=== PATIENT | female | born 1960 | race Two or more races ===

== ENCOUNTER → 2018-09-13 | Outpatient (CLI) | payer OTHER ==
[2018-09-13 14:31] LABS: ABSOLUTE EOSINOPHILS # (AUTO) 0.1 10^3/uL (0.0-0.6); ABSOLUTE LYMPHOCYTES (AUTO) 3.1 10^3/uL (0.5-4.7); ABSOLUTE MONOCYTES (AUTO) 0.4 10^3/uL (0.1-1.4); ABSOLUTE NEUT (AUTO) 5.3 10^3/uL (1.7-8.2); BASOPHILS % (AUTO) 0.3 % (0-2); EOSINOPHILS % (AUTO) 1.1 % (0-6); HEMATOCRIT 40.9 % (36.0-47.0); LYMPHOCYTES % (AUTO) 34.8 % (13-45); MEAN CORPUSCULAR HGB CONC 34.1 g/dL (32.0-36.0); MEAN CORPUSCULAR VOLUME 85 fl (80-97); MONOCYTES % (AUTO) 4.5 % (3-13); PLATELET COUNT 231 10^3/uL (150-450); RED BLOOD COUNT 4.82 10^6/uL (3.72-5.28); RED CELL DISTRIBUTION WIDTH 14.1 % (11.5-14.0); SEGMENTED NEUTROPHILS % (AUTO) 59.3 % (42-78); TOTAL CELLS COUNTED % (AUTO) 100 %
[2018-09-13 14:55] LABS: ALANINE AMINOTRANSFERASE 24 U/L (9-52); ALBUMIN 3.8 g/dL (3.5-5.0); ALKALINE PHOSPHATASE 97 U/L (38-126); ANION GAP 7 (5-19); ASPARTATE AMINO TRANSFERASE 15 U/L (14-36); BILIRUBIN,DIRECT 0.3 mg/dL (0.0-0.4); BILIRUBIN,TOTAL 0.4 mg/dL (0.2-1.3); BLOOD UREA NITROGEN 11 mg/dL (7-20); CALCIUM 9.3 mg/dL (8.4-10.2); CARBON DIOXIDE 29 mmol/L (22-30); CHLORIDE 105 mmol/L (98-107); CHOLESTEROL 212.86 mg/dL (0-200); GLUCOSE 154 mg/dL (75-110); SODIUM 140.6 mmol/L (137-145); TOTAL PROTEIN 7.3 g/dL (6.3-8.2); TRIGLYCERIDES 162 mg/dL (<150)
[2018-09-13 15:06] LABS: DIRECT LDL 152 mg/dL (<100)
[2018-09-13 15:07] LABS: VLDL CHOLESTEROL 32.4 mg/dL (10-31)
== END ==
LOC: OD 13:24
DX: E11.9 Type 2 diabetes mellitus without complications (principal); I10 Essential (primary) hypertension; J45.901 Unspecified asthma with (acute) exacerbation
CPT/HCPCS: 36415; 80053; 80061; 83036; 84443; 85025

== ENCOUNTER → 2018-09-20 | Outpatient (CLI) | payer OTHER ==
--- NOTE | 2018-09-20 16:26 | RADIOLOGY REPORT (SQ) ---
EXAM DESCRIPTION: CHEST PA/LATERAL COMPLETED DATE/TIME: 09/20/2018 3:30 pm REASON FOR STUDY: SHORTNESS OF BREATH COMPARISON: None. EXAM PARAMETERS: NUMBER OF VIEWS: two views TECHNIQUE: Digital Frontal and Lateral radiographic views of the chest acquired. RADIATION DOSE: NA LIMITATIONS: none FINDINGS: LUNGS AND PLEURA: Nodular density overlying right lower lobe not identified on lateral vie w. No effusions. MEDIASTINUM AND HILAR STRUCTURES: No masses or contour abnormalities. HEART AND VASCULAR STRUCTURES: Heart normal size. No evidence for failure. BONES: No acute findings. HARDWARE: None in the chest. OTHER: No other significant finding. IMPRESSION: Possible nodule right lung. Recommend follow-up shallow oblique views with nipple marke rs or noncontrast chest CT. TECHNICAL DOCUMENTATION: JOB ID: [id number] [employer]- All Rights Reserved Reading location - IP/workstation name: [email or web address]
== END ==
LOC: OD 15:15
DX: R05 Cough (principal); R06.02 Shortness of breath; E11.8 Type 2 diabetes mellitus with unspecified complications
CPT/HCPCS: 71046

== ENCOUNTER → 2018-09-23 | Outpatient (CLI) | payer OTHER ==
--- NOTE | 2018-09-23 14:00 | RADIOLOGY REPORT (SQ) ---
EXAM DESCRIPTION: CHEST 2 VIEWS W/OBLIQUES COMPLETED DATE/TIME: 09/23/2018 1:23 pm REASON FOR STUDY: OTHER NONSPECIFIC ABNORMAL FINDING OF LUNG FIELD R91.8 OTHER NONSPECIFIC ABNORMAL FINDING OF LUNG FIELD COMPARISON: 09/20/2018 NUMBER OF VIEWS: Two views TECHNIQUE: PA and lateral images were obtained with nipple markers. LIMITATIONS: None. FINDINGS: LUNGS AND PLEURA: No opacities, masses or pneumothorax. No pleural effusion. MEDIASTINUM AND HILAR STRUCTURES: No masses. Contour normal. HEART AND VASCULAR STRUCTURES: Heart normal in size. Normal vasculature. BONES: No acute findings. HARDWARE: None in the chest. OTHER: No other significant finding. IMPRESSION: NO SIGNIFICANT RADIOGRAPHIC FINDING IN THE CHEST. TECHNICAL DOCUMENTATION: JOB ID: [id number] [employer]- All Rights Reserved Reading location - IP/workstation name: [email or web address]
== END ==
LOC: CCC 12:54
DX: R91.8 Other nonspecific abnormal finding of lung field (principal)

== ENCOUNTER 2018-09-25 14:25 | Observation (INO) | payer OTHER ==
--- NOTE | 2018-09-25 14:50 | ER Document Report ---
ED Medical Screen (RME) - General Chief Complaint: Chest Pain Stated Complaint: EYE PAIN Time Seen by Provider: 09/25/18 14:44 Primary Care Provider: [facility] [Primary Care Provider] - Follow up as needed Mode of Arrival: Ambulatory Information source: Patient Notes: Patient is a 58-year-old female who presents to the emergency department with multiple complaints. Complaint #1 is redness and swelling to her right eye with photophobia. Her daughter is at bedside translating for her, states that she has had recurrent infections in this eye, last saw a doctor in July for this. Complete #2 is midsternal chest pain that radiates to her left shoulder. She states this pain started yesterday and has associated nausea without vomiting or shortness of breath. Patient is Turkish-speaking, will need [employer] translation system for further evaluation. Exam: Erythema and swelling noted to right eye. Lung sounds clear and equal bilaterally. Nonreproducible chest pain to the middle and left chest wall. I have greeted and performed a rapid initial assessment of this patient. A comprehensive ED assessment and evaluation of the patient, analysis of test results and completion of the medical decision making process will be conducted by additional ED providers. Dictation of this chart was performed using voice recognition software; therefore, there may be some unintended grammatical errors. TRAVEL OUTSIDE OF THE [place] IN LAST 30 DAYS: No - Related Data Allergies/Adverse Reactions: No Known Allergies Allergy (Verified 09/25/18 14:29) Past Medical History - Social History Chew tobacco use (# tins/day): No Frequency of alcohol use: None - Past Medical History Cardiac Medical History: Reports: Hx Hypertension Pulmonary Medical History: Reports: Hx Asthma Endocrine Medical History: Reports: Hx Diabetes Mellitus Type 2 Renal/ Medical History: Denies: Hx Peritoneal Dialysis Musculoskeltal Medical History: Reports Hx Arthritis Past Surgical History: Reports: Hx Tubal Ligation Physical Exam - Vital signs Vitals: Temp Pulse Resp BP Pulse Ox 98.4 F 94 18 176/81 H 98 09/25/18 14:39 09/25/18 14:39 09/25/18 14:39 09/25/18 14:39 09/25/18 14:39 Course - Vital Signs Vital signs: Temp Pulse Resp BP Pulse Ox 98.4 F 94 18 176/81 H 98 09/25/18 14:39 09/25/18 14:39 09/25/18 14:39 09/25/18 14:39 09/25/18 14:39 Doctor's Discharge - Discharge Referrals: [facility] [Primary [facility]] - Follow up as needed
[2018-09-25 15:16] LABS: ABSOLUTE BASOPHILS # (AUTO) 0.1 10^3/uL (0.0-0.2); ABSOLUTE EOSINOPHILS # (AUTO) 0.1 10^3/uL (0.0-0.6); ABSOLUTE LYMPHOCYTES (AUTO) 3.1 10^3/uL (0.5-4.7); ABSOLUTE MONOCYTES (AUTO) 0.5 10^3/uL (0.1-1.4); BASOPHILS % (AUTO) 0.5 % (0-2); EOSINOPHILS % (AUTO) 1.1 % (0-6); HEMOGLOBIN 14.9 g/dL (12.0-15.5); LYMPHOCYTES % (AUTO) 28.9 % (13-45); MEAN CORPUSCULAR HEMOGLOBIN 29.2 pg (27.0-33.4); MEAN CORPUSCULAR HGB CONC 34.6 g/dL (32.0-36.0); MEAN CORPUSCULAR VOLUME 85 fl (80-97); MONOCYTES % (AUTO) 4.2 % (3-13); PLATELET COUNT 284 10^3/uL (150-450); RED BLOOD COUNT 5.09 10^6/uL (3.72-5.28); RED CELL DISTRIBUTION WIDTH 14.4 % (11.5-14.0); SEGMENTED NEUTROPHILS % (AUTO) 65.3 % (42-78); TOTAL CELLS COUNTED % (AUTO) 100 %; WHITE BLOOD COUNT 10.8 10^3/uL (4.0-10.5)
[2018-09-25 15:26] LABS: ALANINE AMINOTRANSFERASE 24 U/L (9-52); ALBUMIN 4.1 g/dL (3.5-5.0); ALKALINE PHOSPHATASE 91 U/L (38-126); ANION GAP 10 (5-19); ASPARTATE AMINO TRANSFERASE 16 U/L (14-36); BILIRUBIN,DIRECT 0.3 mg/dL (0.0-0.4); BILIRUBIN,TOTAL 0.5 mg/dL (0.2-1.3); BLOOD UREA NITROGEN 13 mg/dL (7-20); CALCIUM 9.6 mg/dL (8.4-10.2); CARBON DIOXIDE 28 mmol/L (22-30); CHLORIDE 104 mmol/L (98-107); GLUCOSE 149 mg/dL (75-110); POTASSIUM 4.2 mmol/L (3.6-5.0); SODIUM 141.8 mmol/L (137-145); TOTAL PROTEIN 7.5 g/dL (6.3-8.2)
[2018-09-25] MEDS ORDERED: TETRACAINE HCL 0.5% OPH SOLN 4 ML ONE (15:58)
--- NOTE | 2018-09-25 16:18 | RADIOLOGY REPORT (SQ) ---
EXAM DESCRIPTION: CHEST SINGLE VIEW COMPLETED DATE/TIME: 09/25/2018 3:14 pm REASON FOR STUDY: chest pain COMPARISON: 09/23/2018. NUMBER OF VIEWS: One view. TECHNIQUE: Single frontal radiographic view of the chest acquired. LIMITATIONS: None. FINDINGS: LUNGS AND PLEURA: No opacities, masses or pneumothorax. No pleural effusion. MEDIASTINUM AND HILAR STRUCTURES: No masses. Contour normal. HEART AND VASCULAR STRUCTURES: Heart normal in size. Normal vasculature. BONES: No acute findings. HARDWARE: None in the chest. OTHER: No other significant finding. IMPRESSION: NO SIGNIFICANT RADIOGRAPHIC FINDING IN THE CHEST. TECHNICAL DOCUMENTATION: JOB ID: [id number] [employer]- All Rights Reserved Reading location - IP/workstation name: [email or web address]
[2018-09-25] MEDS ORDERED: KETOROLAC TROMETHAMINE INJ/PF 30 MG/1 ML SDV IV ONE (16:38)
[2018-09-25] MEDS ORDERED: LIDOCAINE 2% VISCOUS SOLN 20 ML UDCUP PO ONE (16:38)
[2018-09-25] MEDS ORDERED: METOCLOPRAMIDE HCL ORAL SOLN 10 MG/10 ML UDCUP PO ONE (16:38)
[2018-09-25] MEDS ORDERED: MAG HYDROX/AL HYDROX/SIMETH SUSP 30 ML UDCUP PO ONE (16:38)
[2018-09-25] MEDS ORDERED: FAMOTIDINE 20 MG TABLET PO ONE (16:39)
[2018-09-25] MEDS ORDERED: AMPICILLIN SOD/SULBACTAM 3 GM VIAL IV ONE (16:39)
--- NOTE | 2018-09-25 17:14 | ER Document Report ---
ED General - General Chief Complaint: Chest Pain Stated Complaint: EYE PAIN Time Seen by Provider: 09/25/18 14:44 Mode of Arrival: Ambulatory Notes: This is a 58-year-old Chinese-speaking only [place] to the emergency department for evaluation of multiple symptoms. Patient complaining of pain and discharge with blurred vision in the right eye as well as a headache, as well as chest pain, as well as fever, as well as generalized body aches. Patient does not have a primary care doctor. Saw approximately 1 year ago in [place]. Patient has a history of diabetes as well as hypertension. 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 States that she has never seen an personnel security specialist for this that her regular doctor in [place] would just give her some antibiotics. The abscess has been there for several years but never goes away. TRAVEL OUTSIDE OF THE [place] IN LAST 30 DAYS: No - HPI Onset/Duration: Gradual, Constant Quality of pain: Achy Severity: Moderate Pain Level: 3 Associated symptoms: Chest pain, Fever, Other - Eye pain on the right, eye discharge on the right eye - Related Data Allergies/Adverse Reactions: No Known Allergies Allergy (Verified 09/25/18 14:29) Past Medical History - General Information source: Patient - Social History Smoking Status: Current Every Day Smoker Chew tobacco use (# tins/day): No Frequency of alcohol use: None Lives with: Family Family History: Reviewed & Not Pertinent Patient has suicidal ideation: No Patient has homicidal ideation: No - Past Medical History Cardiac Medical History: Reports: Hx Hypertension Pulmonary Medical History: Reports: Hx Asthma Endocrine Medical History: Reports: Hx Diabetes Mellitus Type 2 Renal/ Medical History: Denies: Hx Peritoneal Dialysis Musculoskeletal Medical History: Reports Hx Arthritis Past Surgical History: Reports: Hx Tubal Ligation Review of Systems - Review of Systems Notes: Constitutional: denies: Chills, Diaphoresis, Malaise, Weakness.+Fever, EENT: denies: Double vision, Nose congestion, Nose discharge, Throat swelling, Mouth pain. +RIGHT Eye discharge, Blurred vision, Tearing, Cardiovascular: denies: Palpitations, Heart racing, Orthopnea, Dyspnea, +Chest pain Respiratory: denies: Cough, Hurts to breathe, Wheezing, Shortness of breath Gastrointestinal: denies: Abdominal pain, Diarrhea, Nausea, Vomiting, Black stools, bright red blood in stool Genitourinary: denies: Burning, Dysuria, Discharge, Frequency, Flank pain, Hematuria Musculoskeletal: denies: Joint pain, Joint swelling, Muscle pain, Muscle stiffness, back pain Hematologic/Lymphatic: denies: Anemia, Easy bleeding, Easy bruising, Blood clots Neurological/Psychological: denies: Confusion, Dementia, Depression, Loss of consciousness Skin: No lesions, no masses, no skin breakdown, no abscesses Physical Exam - Vital signs Vitals: Temp Pulse Resp BP Pulse Ox 98.4 F 94 18 176/81 H 98 09/25/18 14:39 09/25/18 14:39 09/25/18 14:39 09/25/18 14:39 09/25/18 14:39 Interpretation: Hypertensive - General General appearance: Appears well, Alert - HEENT Head: Normocephalic, Atraumatic Pupils: PERRL Notes: The left eye is normal. The right eye demonstrates a 1 cm round palpable and painful upper eyelid abscess versus stye. There is a large amount of conjunctival injection in the right eye. There is a large amount of discharge of the right eye. There is some moderate swelling to the right eye. The right eye does not demonstrate any fluroscein uptake. The tonometry performed has an average pressure of 16. - Respiratory Respiratory status: No respiratory distress Chest status: Nontender Breath sounds: Normal Chest palpation: Normal - Cardiovascular Rhythm: Regular Heart sounds: Normal auscultation Murmur: No - Abdominal Inspection: Normal Distension: No distension Bowel sounds: Normal Tenderness: Nontender Organomegaly: No organomegaly - Back Back: Normal, Nontender - Extremities General upper extremity: Normal inspection, Nontender, Normal color, Normal ROM, Normal temperature General lower extremity: Normal inspection, Nontender, Normal color, Normal ROM, Normal temperature, Normal weight bearing. No: Kayode's sign - Neurological Neuro grossly intact: Yes Cognition: Normal Orientation: AAOx4 [place] Coma Scale Eye Opening: Spontaneous Shira Coma Scale Verbal: Oriented [place] Coma Scale Motor: Obeys Commands [place] Coma Scale Total: 15 Speech: Normal Motor strength normal: LUE, RUE, LLE, RLE Sensory: Normal - Psychological Associated symptoms: Normal affect, Normal mood - Skin Skin Temperature: Warm Skin Moisture: Dry Skin Color: Normal Course - Re-evaluation Re-evalutation: 09/25/18 17:14 Microbiology 09/25/18 16:12 Wound Culture - Preliminary Eyelid - Right Laboratory 09/25/18 09/25/18 09/25/18 15:00 15:00 15:00 WBC 10.8 H RBC 5.09 Hgb 14.9 Hct 43.0 MCV 85 MCH 29.2 MCHC 34.6 RDW 14.4 H Plt Count 284 Seg Neutrophils % 65.3 Lymphocytes % 28.9 Monocytes % 4.2 Eosinophils % 1.1 Basophils % 0.5 Absolute Neutrophils 7.0 Absolute Lymphocytes 3.1 Absolute Monocytes 0.5 Absolute Eosinophils 0.1 Absolute Basophils 0.1 Sodium 141.8 Potassium 4.2 Chloride 104 Carbon Dioxide 28 Anion Gap 10 BUN 13 Creatinine 0.55 Est GFR ( Amer) > 60 Est GFR (Non-Af Amer) > 60 Glucose 149 H Calcium 9.6 Total Bilirubin 0.5 Direct Bilirubin 0.3 Neonat Total Bilirubin Not Reportable Neonat Direct Bilirubin Not Reportable Neonat Indirect Bili Not Reportable AST 16 ALT 24 Alkaline Phosphatase 91 Troponin I < 0.012 Total Protein 7.5 Albumin 4.1 09/25/18 17:54 At this time patient is a high risk chest pain patient with chest pain that is exertional, she is hypertensive, diabetic and no consistent outpatient primary care. She has an infection in her right eye that she describes as a chronic infection. I am treating that with antibiotics. At this time patient needs to be admitted. I will consult with hospitalist for admission at this time. 09/25/18 18:15 Chest X-Ray 09/25/18 14:48 IMPRESSION: NO SIGNIFICANT RADIOGRAPHIC FINDING IN THE CHEST. Orbit CT 09/25/18 16:38 IMPRESSION: Small likely abscess in the right eye lid. No involvement of the globe. - Vital Signs Vital signs: Temp Pulse Resp BP Pulse Ox 98.4 F 94 20 151/74 H 96 09/25/18 14:39 09/25/18 14:39 09/25/18 17:01 09/25/18 17:01 09/25/18 17:01 - Laboratory Result Diagrams: 09/25/18 15:00 09/25/18 15:00 Laboratory results interpreted by me: 09/25/18 09/25/18 15:00 15:00 WBC 10.8 H RDW 14.4 H Glucose 149 H - EKG Interpretation by Me EKG shows normal: Sinus rhythm, Butternut, Intervals, QRS Complexes, ST-T Waves Discharge - Discharge Clinical Impression: Abscess of right eyelid Chest pain Qualifiers: Chest pain type: unspecified Qualified Code(s): R07.9 - Chest pain, unspecified Condition: Good Disposition: ADMITTED INPATIENT Admitting Provider: Mini (Hospitalist) Unit Admitted: Telemetry
[2018-09-25] MEDS ORDERED: TETRACAINE HCL 0.5% OPH SOLN 4 ML OU ONE (17:53)
[2018-09-25] MEDS ORDERED: ERYTHROMYCIN 0.5% OPH OINT 1 GM UNIT DOSE OD ONE (17:55)
--- NOTE | 2018-09-25 17:56 | RADIOLOGY REPORT (SQ) ---
EXAM DESCRIPTION: CT ORBIT/SELLA WITH COMPLETED DATE/TIME: 09/25/2018 5:45 pm REASON FOR STUDY: right eye swelling COMPARISON: None. TECHNIQUE: Post contrast images through the orbits windowed for bone and soft tissue. Additional co debi and sagittal reconstructed images reviewed. All images stored on PACS. All CT scanners at this facility use dose modulation, iterative reconstruction, and/or weight based d osing when appropriate to reduce radiation dose to as low as reasonably achievable (ALARA). [facility]: Dose Right [facility]: CareDose [facility]: Dose Right [facility]: Teradose 4D [facility]: Diaspora CONTRAST TYPE AND DOSE: contrast/concentration: Isovue 350.00 mg/ml; Total Contrast Delivered: 50.0 ml; Total Saline Delivered: 50.0 ml RENAL FUNCTION: GFR > 60. RADIATION DOSE: CT Rad equipment meets quality standard of care and radiation dose reduction techniq ues were employed. CTDIvol: 30.4 mGy. DLP: 355 mGy-cm. . LIMITATIONS: None. FINDINGS: FACIAL BONES: No fracture or bone lesion. ORBITS: No intraconal lesions. Muscles and nerve intact. The globe intact. On the right there is a 1 cm low-density mass lesion which appears to be in the right eyelid. Rim en hancement. PARANASAL SINUSES: Clear. No significant mucosal thickening, mass or fluid. SOFT TISSUES: No mass or edema. No abnormal enhancement. No CT evidence of acute sinusitis. INFERIOR BRAIN: Limited view. No acute findings. OTHER: No other significant finding. IMPRESSION: Small likely abscess in the right eye lid. No involvement of the globe. TECHNICAL DOCUMENTATION: JOB ID: [id number] Quality ID # [id number]: Final reports with documentation of one or more dose reduction techniques (e.g., Au tomated exposure control, adjustment of the mA and/or kV according to patient size, use of iterative reconstruction technique) 2010 [employer]- All Rights Reserved Reading location - IP/workstation name: [email or web address]
[2018-09-25] MEDS ORDERED: HYDRALAZINE HCL INJ/PF 20 MG/1 ML SDV IV PRN (19:18)
[2018-09-25] MEDS ORDERED: DEXTROSE 50%-WATER 25 GM/50 ML DISP.SYRIN IV PRN ×2 (19:18)
[2018-09-25] MEDS ORDERED: DEXTROSE 40% GEL 15 GM TUBE PO PRN ×2 (19:18)
[2018-09-25] MEDS ORDERED: GLUCAGON,HUMAN RECOMB 1 MG INJ IM PRN (19:18)
[2018-09-25] MEDS ORDERED: AMPICILLIN SOD/SULBACTAM 3 GM VIAL IV PRN (19:30)
--- NOTE | 2018-09-25 20:24 | RADIOLOGY REPORT (SQ) ---
EXAM DESCRIPTION: RadLex: CT CHEST WITHOUT IV CONTRAST CLINICAL HISTORY: 58 years Female; radiating CP to midback TECHNIQUE: CT of the chest without contrast All CT scans at this facility use dose modulation, iterative reconstruction, and/or weight based dosing when appropriate to reduce radiation dose to as low as reasonably achievable. COMPARISON: None. FINDINGS: Chest: Lungs: Lungs are clear. No pneumothorax or pleural effusion. 3 mm calcified granuloma in the lateral right lower lobe. Mediastinum:No mediastinal mass or adenopathy. Aorta: Minimal calcific plaque. No aneurysm. Bones:No acute bone findings. Contrast material is noted in the renal collecting systems bilaterally IMPRESSION: 1. No acute findings.
[2018-09-25] MEDS: INSULIN LISPRO 100 UNIT/ML 3 ML VIAL SUBCUT SCH (21:18)
[2018-09-25] MEDS: CEFEPIME 1 GM/D5W RTU 1 GM/50 ML RTUPB IV SCH (21:21)
[2018-09-25] MEDS ORDERED: NITROGLYCERIN 0.4 MG/TAB 25 TAB/BOTTLE SL PRN (21:35)
[2018-09-25] MEDS ORDERED: POLYMYXIN B SULFATE/TMP OPH SOLN 10 ML ONE (21:59)
[2018-09-25] MEDS: POLYMYXIN B SULFATE/TMP OPH SOLN (10 ML/ER DISP) OD SCH (22:46)
[2018-09-26] MEDS ORDERED: AMPICILLIN SOD/SULBACTAM 3 GM VIAL ONE (00:32)
[2018-09-26] MEDS: AMPICILLIN SODIUM/SULBACTAM NA 3 GM in NORMAL SALINE 100 ML IV SCH ×5 (00:57→23:27)
--- NOTE | 2018-09-26 07:32 | PDOC H&P ---
History of Present Illness Admission Date/PCP: 09/25/18 18:16 [facility] History of Present Illness: JASPREET TIM is a 58 year old female with a PMH of IDDM, HTN, smoker and asthma who moved here from [place] last year. She is presenting with chest pain and acute right eye redness. Conversation was done with an official nurse surveyor helper in the ER. She developed sharp,tightness sensation on her midsternal area radiating to the interscapular area while cooking yesterday relieved by rest, 8/10 in intensity. Denies SOB. She also has recurrence of right eye redness with some purulent drainage and a small mass on the right eyelid. She has been having this same problem over the past 6-7 years and claims she it usually resolves with the eye drops she was prescribed in [place]. Tonometry was done by ER provider and it was normal. She is able to read letters from 2 meters but says it is not as sharp as compared to the left eye. The conjunctiva is very hyperemic with some purulent discharge. She has what looks like a hordeolum on the right eyelid. Orbital CT was done which showed a possible small right eyelid abscess. I did discuss case with [facility] as there is no optha service in house. Dr. Andersen recommends IV antibiotics and opthalmic Polytrim along with warm compress on the area and to keep patient upright the whole time. No need for emergent drainage at this time unless there is rapid growth of mass or no response to antibiotics in the next 1-2 days. Past Medical History Cardiac Medical History: Reports: Hypertension Pulmonary Medical History: Reports: Asthma Endocrine Medical History: Reports: Diabetes Mellitus Type 2 Musculoskeltal Medical History: Reports: Arthritis Past Surgical History Past Surgical History: Reports: Tubal Ligation Social History Lives with: Family Smoking Status: Current Every Day Smoker Family History Family History: Reviewed & Not Pertinent Parental Family History Reviewed: Yes - no premature CAD Children Family History Reviewed: No Sibling(s) Family History Reviewed.: No Medication/Allergy Home Medications: Metformin HCl 2 tab PO DAILY 09/25/18 Allergies/Adverse Reactions: clopidogrel [From Plavix] Allergy (Verified 09/25/18 20:22) Review of Systems All systems: reviewed and no additional remarkable complaints except as stated - as mentioned in HPI Physical Exam Vital Signs: Temp Pulse Resp BP Pulse Ox 98.4 F 94 20 151/74 H 96 09/25/18 14:39 09/25/18 14:39 09/25/18 17:01 09/25/18 17:01 09/25/18 17:01 Intake & Output 09/24/18 09/25/18 09/26/18 06:59 06:59 06:59 Weight 134 lb 11.239 oz General appearance: PRESENT: no acute distress, well-developed, well-nourished Head exam: PRESENT: atraumatic, normocephalic Eye exam: PRESENT: other - Tonometry was done by ER provider and it was normal. She is able to read letters from 2 meters but says it is not as sharp as compared to the left eye. The conjunctiva is very hyperemic with some purulent discharge. She has what looks like a hordeolum on the right eyelid. Neck exam: ABSENT: carotid bruit, JVD, lymphadenopathy, thyromegaly Respiratory exam: PRESENT: clear to auscultation micah. ABSENT: rales, rhonchi, wheezes Cardiovascular exam: PRESENT: RRR. ABSENT: diastolic murmur, rubs, systolic murmur Pulses: PRESENT: normal dorsalis pedis pul Rectal exam: PRESENT: deferred Neurological exam: PRESENT: alert, awake, oriented to person, oriented to place, oriented to time, oriented to situation, CN II-XII grossly intact. ABSENT: motor sensory deficit Results Laboratory Results: 09/25/18 15:00 09/25/18 15:00 09/25/18 09/25/18 15:00 15:00 WBC 10.8 H RBC 5.09 Hgb 14.9 Hct 43.0 MCV 85 MCH 29.2 MCHC 34.6 RDW 14.4 H Plt Count 284 Seg Neutrophils % 65.3 Lymphocytes % 28.9 Monocytes % 4.2 Eosinophils % 1.1 Basophils % 0.5 Absolute Neutrophils 7.0 Absolute Lymphocytes 3.1 Absolute Monocytes 0.5 Absolute Eosinophils 0.1 Absolute Basophils 0.1 Sodium 141.8 Potassium 4.2 Chloride 104 Carbon Dioxide 28 Anion Gap 10 BUN 13 Creatinine 0.55 Est GFR ( Amer) > 60 Est GFR (Non-Af Amer) > 60 Glucose 149 H Calcium 9.6 Total Bilirubin 0.5 AST 16 ALT 24 Alkaline Phosphatase 91 Total Protein 7.5 Albumin 4.1 09/25/18 15:00 Troponin I < 0.012 Impressions: Chest X-Ray 09/25/18 14:48 IMPRESSION: NO SIGNIFICANT RADIOGRAPHIC FINDING IN THE CHEST. Orbit CT 09/25/18 16:38 IMPRESSION: Small likely abscess in the right eye lid. No involvement of the globe. Assessment and Plan - Diagnosis (1) Chest pain Qualifiers: Chest pain type: unspecified Qualified Code(s): R07.9 - Chest pain, unspecified Is this a current diagnosis for this admission?: Yes Plan: First EKG and troponin are negative. Will cycle cardiac enzymes and EKG. (2) Abscess of right eyelid Is this a current diagnosis for this admission?: Yes Plan: Possible small abscess on right eyelid. I did discuss case with [facility] as there is no optha service in house. Dr. Andersen recommends IV antibiotics and opthalmic Polytrim along with warm compress on the area and to keep patient upright the whole time. No need for emergent drainage at this time unless there is rapid growth of mass or no response to antibiotics in the next 1-2 days. (3) IDDM (insulin dependent diabetes mellitus) Is this a current diagnosis for this admission?: Yes Plan: She is on Lantus at home. Will verify home meds. Accuechks and sliding scale. Check A1c. (4) HTN (hypertension) Is this a current diagnosis for this admission?: Yes Plan: Resume amlodipine. - Time Time Spent with patient: 35 or more minutes
[2018-09-26] MEDS: FONDAPARINUX SODIUM INJ 2.5 MG/0.5 ML DISP.SYRIN SUBCUT SCH (08:26)
[2018-09-26] MEDS: INSULIN LISPRO 100 UNIT/ML 3 ML VIAL SUBCUT SCH ×4 (08:26→21:31)
[2018-09-26] MEDS: CEFEPIME 1 GM/D5W RTU 1 GM/50 ML RTUPB IV SCH ×2 (10:04→21:30)
[2018-09-26] MEDS: AMLODIPINE BESYLATE 10 MG TABLET PO SCH (10:04)
[2018-09-26] MEDS: POLYMYXIN B SULFATE/TMP OPH SOLN (10 ML/ER DISP) OD SCH ×3 (10:05→17:20)
[2018-09-26] MEDS: ACETAMINOPHEN 325 MG TABLET PO PRN ×2 (13:09→23:31)
--- NOTE | 2018-09-26 16:51 | PDOC PROGRESS REPORT ---
Subjective Progress Note for:: 09/26/18 Subjective:: No adverse events overnight. No new complaints. No visual changes. No fevers. Eating and drinking without difficulty. No chest pain or shortness of breath. Reason For Visit: CHEST PAIN, EYELID ABSCESS Physical Exam Vital Signs: Temp Pulse Resp BP Pulse Ox 97.9 F 60 15 130/68 H 97 09/26/18 15:31 09/26/18 15:31 09/26/18 15:31 09/26/18 15:31 09/26/18 15:31 Intake & Output 09/25/18 09/26/18 09/27/18 06:59 06:59 06:59 Intake Total 600 350 Balance 600 350 Weight 60.8 kg General appearance: PRESENT: no acute distress, cooperative, disheveled Eye exam: PRESENT: conjunctival injection - Right eye, EOMI, periorbital swelling - Right eye, PERRLA. ABSENT: nystagmus, scleral icterus Respiratory exam: PRESENT: clear to auscultation micah, symmetrical, unlabored. ABSENT: accessory muscle use, crackles, prolonged expiratory phas, rhonchi, tachypnea, wheezes Cardiovascular exam: PRESENT: RRR, +S1, +S2 Pulses: PRESENT: normal carotid pulses Vascular exam: PRESENT: normal capillary refill GI/Abdominal exam: PRESENT: normal bowel sounds, soft. ABSENT: distended, guarding, rebound, tenderness Extremities exam: ABSENT: clubbing, pedal edema Musculoskeletal exam: PRESENT: normal inspection. ABSENT: deformity Neurological exam: PRESENT: alert, awake, oriented to person, oriented to place, oriented to situation Psychiatric exam: PRESENT: anxious Skin exam: PRESENT: dry, warm Results Laboratory Results: 09/25/18 15:00 09/25/18 15:00 09/25/18 09/25/18 09/26/18 15:00 21:10 06:22 Troponin I < 0.012 < 0.012 < 0.012 Impressions: Chest CT 09/25/18 00:00 IMPRESSION: 1. No acute findings. Chest X-Ray 09/25/18 14:48 IMPRESSION: NO SIGNIFICANT RADIOGRAPHIC FINDING IN THE CHEST. Orbit CT 09/25/18 16:38 IMPRESSION: Small likely abscess in the right eye lid. No involvement of the globe. Assessment and Plan - Diagnosis (1) Abscess of right eyelid Is this a current diagnosis for this admission?: Yes Plan: Dr. Andersen, tire spotter in [place], recommends IV antibiotics and opthalmic Polytrim along with warm compress on the area and to keep patient upright the whole time. No need for emergent drainage at this time unless there is rapid growth of mass or no response to antibiotics in the next 1-2 days. Will monitor response and adjust accordingly. (2) Chest pain Qualifiers: Chest pain type: unspecified Qualified Code(s): R07.9 - Chest pain, unspecified Is this a current diagnosis for this admission?: Yes Plan: Troponins are negative x3. EKG is unremarkable. May consider stress test as an outpatient. (3) IDDM (insulin dependent diabetes mellitus) Is this a current diagnosis for this admission?: Yes Plan: She is on Lantus at home. Accuchecks and sliding scale. Check A1c. - Time Time Spent with patient: 15-24 minutes
--- NOTE | 2018-09-26 23:41 | EKG REPORT ---
SEVERITY:- NORMAL ECG - SINUS RHYTHM : Confirmed by: Shirley Leslie 26-Sep-2018 23:40:54
--- NOTE | 2018-09-26 23:41 | EKG REPORT ---
SEVERITY:- BORDERLINE ECG - SINUS RHYTHM BORDERLINE T WAVE ABNORMALITIES : Confirmed by: Shirley Leslie 26-Sep-2018 23:40:50
[2018-09-27] MEDS ORDERED: DIPHENHYDRAMINE HCL 50 MG CAPSULE PO ONE (00:30)
[2018-09-27] MEDS: AMPICILLIN SODIUM/SULBACTAM NA 3 GM in NORMAL SALINE 100 ML IV SCH ×4 (05:08→23:46)
[2018-09-27] MEDS: FONDAPARINUX SODIUM INJ 2.5 MG/0.5 ML DISP.SYRIN SUBCUT SCH (09:11)
[2018-09-27] MEDS: AMLODIPINE BESYLATE 10 MG TABLET PO SCH (09:32)
[2018-09-27] MEDS: INSULIN LISPRO 100 UNIT/ML 3 ML VIAL SUBCUT SCH ×4 (09:32→21:22)
[2018-09-27] MEDS: CEFEPIME 1 GM/D5W RTU 1 GM/50 ML RTUPB IV SCH ×2 (09:33→21:23)
[2018-09-27] MEDS: POLYMYXIN B SULFATE/TMP OPH SOLN (10 ML/ER DISP) OD SCH ×3 (09:36→18:36)
--- NOTE | 2018-09-27 16:32 | PDOC PROGRESS REPORT ---
Subjective Progress Note for:: 09/27/18 Subjective:: No adverse events overnight. No new complaints. No fevers. Her vision has not changed, and the vision in the right eye has been blurry for the last 17 years. She has had a problem with her eye for 17 years, and has had this cystic structure in her eyelid during that time and apparently has an infection crop up in the right eye once or twice a year, usually associated with seasonal allergies. She has not seen an sizer hand in years and the last time she saw 1 was in [place] many years ago when they told her at that time that they did not have the capabilities to do anything for her. Reason For Visit: CHEST PAIN, EYELID ABSCESS Physical Exam Vital Signs: Temp Pulse Resp BP Pulse Ox 98.7 F 68 18 175/76 H 98 09/27/18 11:53 09/27/18 14:00 09/27/18 11:53 09/27/18 11:53 09/27/18 11:53 Intake & Output 09/26/18 09/27/18 09/28/18 06:59 06:59 06:59 Intake Total 600 1303 150 Balance 600 1303 150 Weight 60.8 kg 61.2 kg General appearance: PRESENT: no acute distress, cooperative, disheveled Eye exam: PRESENT: conjunctival injection - Right eye, EOMI, periorbital swel ling - Right eye improved, PERRLA, nontender cystic structure in right eyelid. ABSENT: nystagmus, scleral icterus Respiratory exam: PRESENT: clear to auscultation micah, symmetrical, unlabored. ABSENT: accessory muscle use, crackles, prolonged expiratory phas, rhonchi, tachypnea, wheezes Cardiovascular exam: PRESENT: RRR, +S1, +S2 Pulses: PRESENT: normal carotid pulses Vascular exam: PRESENT: normal capillary refill GI/Abdominal exam: PRESENT: normal bowel sounds, soft. ABSENT: distended, guarding, rebound, tenderness Extremities exam: ABSENT: clubbing, pedal edema Musculoskeletal exam: PRESENT: normal inspection. ABSENT: deformity Neurological exam: PRESENT: alert, awake, oriented to person, oriented to place, oriented to situation Psychiatric exam: PRESENT: anxious Skin exam: PRESENT: dry, warm Results Laboratory Results: 09/25/18 15:00 09/25/18 15:00 09/25/18 16:12 Eyelid - Right Gram Stain - Final 09/25/18 09/25/18 09/26/18 15:00 21:10 06:22 Troponin I < 0.012 < 0.012 < 0.012 Impressions: Chest CT 09/25/18 00:00 IMPRESSION: 1. No acute findings. Chest X-Ray 09/25/18 14:48 IMPRESSION: NO SIGNIFICANT RADIOGRAPHIC FINDING IN THE CHEST. Orbit CT 09/25/18 16:38 IMPRESSION: Small likely abscess in the right eye lid. No involvement of the globe. Assessment and Plan - Diagnosis (1) Abscess of right eyelid Is this a current diagnosis for this admission?: Yes Plan: Dr. Andersen, sizer hand in [place], recommends IV antibiotics and opthalmic Polytrim along with warm compress on the area and to keep patient upright the whole time. No need for emergent drainage at this time unless there is rapid growth of mass or no response to antibiotics. Fortunately, she has had improvement in the erythema and the swelling around her eye, with the unchanged cystic structure in her right eyelid which is chronic. I think with another day of IV antibiotics, if she shows some continued improvement, she should be able to go home on oral antibiotics tomorrow. She would be willing to follow-up with an sizer hand and I have recommended that she do so, because this is an issue with an infection in her eye that seems to recur once or twice every year. (2) Chest pain Qualifiers: Chest pain type: unspecified Qualified Code(s): R07.9 - Chest pain, unspecified Is this a current diagnosis for this admission?: Yes Plan: Troponins are negative x3. EKG is unremarkable. May consider stress test as an outpatient. (3) IDDM (insulin dependent diabetes mellitus) Is this a current diagnosis for this admission?: Yes Plan: She is on Lantus at home. Accuchecks and sliding scale. - Time Time Spent with patient: 15-24 minutes
[2018-09-28] MEDS: AMPICILLIN SODIUM/SULBACTAM NA 3 GM in NORMAL SALINE 100 ML IV SCH ×4 (05:55→23:39)
[2018-09-28 07:47] LABS: ANION GAP 5 (5-19); BLOOD UREA NITROGEN 11 mg/dL (7-20); CALCIUM 9.2 mg/dL (8.4-10.2); CARBON DIOXIDE 24 mmol/L (22-30); CHLORIDE 110 mmol/L (98-107); GLUCOSE 222 mg/dL (75-110); POTASSIUM 4.1 mmol/L (3.6-5.0)
[2018-09-28] MEDS: CEFEPIME 1 GM/D5W RTU 1 GM/50 ML RTUPB IV SCH (09:20)
[2018-09-28] MEDS: INSULIN LISPRO 100 UNIT/ML 3 ML VIAL SUBCUT SCH ×4 (09:21→22:16)
[2018-09-28] MEDS: AMLODIPINE BESYLATE 10 MG TABLET PO SCH (09:21)
[2018-09-28] MEDS: FONDAPARINUX SODIUM INJ 2.5 MG/0.5 ML DISP.SYRIN SUBCUT SCH (09:21)
[2018-09-28] MEDS: POLYMYXIN B SULFATE/TMP OPH SOLN (10 ML/ER DISP) OD SCH ×3 (09:27→18:44)
[2018-09-28] MEDS: LOSARTAN POTASSIUM 50 MG TABLET PO SCH (14:07)
[2018-09-28] MEDS: DILTIAZEM HCL 120 MG CAP.SR.24H PO SCH (14:08)
--- NOTE | 2018-09-28 14:53 | PDOC PROGRESS REPORT ---
Subjective Progress Note for:: 09/28/18 Subjective:: 58 year old female with a PMH of IDDM, HTN, smoker and asthma who moved here from [place] last year. She is presenting with chest pain and acute right eye redness. Conversation was done with an official nurse senior marketing data analyst in the ER. She developed sharp,tightness sensation on her midsternal area radiating to the interscapular area while cooking yesterday relieved by rest, 8/10 in intensity. Denies SOB. She also has recurrence of right eye redness with some purulent drainage and a small mass on the right eyelid. She has been having this same problem over the past 6-7 years and claims she it usually resolves with the eye drops she was prescribed in [place]. Tonometry was done by ER provider and it was normal. She is able to read letters from 2 meters but says it is not as sharp as compared to the left eye. The conjunctiva is very hyperemic with some purulent discharge. She has what looks like a hordeolum on the right eyelid. Orbital CT was done which showed a possible small right eyelid abscess. I did discuss case with [facility] as there is no optha service in house. Dr. Andersen recommends IV antibiotics and opthalmic Polytrim along with warm compress on the area and to keep patient upright the whole time. No need for emergent drainage at this time unless there is rapid growth of mass or no response to antibiotics in the next 1-2 days. 09/27/2018=No adverse events overnight. No new complaints. No fevers. Her vision has not changed, and the vision in the right eye has been blurry for the last 17 years. She has had a problem with her eye for 17 years, and has had this cystic structure in her eyelid during that time and apparently has an infection crop up in the right eye once or twice a year, usually associated with seasonal allergies. She has not seen an pearl glue drier in years and the last time she saw 1 was in [place] many years ago when they told her at that time that they did not have the capabilities to do anything for her. 09/28/2018-no acute events in the last 24 hours. Patient is afebrile. Patient speaks very little Icelandic. Family is not at bedside. Patient is not changed. Patient has a problem with right eye vision for more than 17 years. Patient admitted for possible infection of the cystic structure on the right upper eyelid. Patient is receiving IV antibiotic therapy. Currently on Unasyn and cefepime. And is to continue the present management. Reason For Visit: CHEST PAIN, EYELID ABSCESS Physical Exam Vital Signs: Temp Pulse Resp BP Pulse Ox 98.3 F 58 L 18 141/63 H 95 09/28/18 10:56 09/28/18 10:56 09/28/18 10:56 09/28/18 10:56 09/28/18 10:56 Intake & Output 09/27/18 09/28/18 09/29/18 06:59 06:59 06:59 Intake Total 1303 1703 50 Balance 1303 1703 50 Weight 61.2 kg 64.9 kg General appearance: PRESENT: no acute distress Head exam: PRESENT: atraumatic Eye exam: PRESENT: PERRLA Mouth exam: PRESENT: moist, tongue midline Neck exam: ABSENT: carotid bruit, JVD, lymphadenopathy, thyromegaly Respiratory exam: PRESENT: decreased breath sounds Cardiovascular exam: PRESENT: RRR. ABSENT: diastolic murmur, rubs, systolic murmur Pulses: PRESENT: normal dorsalis pedis pul GI/Abdominal exam: PRESENT: normal bowel sounds, soft. ABSENT: distended, guarding, mass, organolmegaly, rebound, tenderness Extremities exam: PRESENT: full ROM. ABSENT: calf tenderness, clubbing, pedal edema Neurological exam: PRESENT: alert, awake, oriented to person, oriented to place, oriented to time, oriented to situation, CN II-XII grossly intact. ABSENT: motor sensory deficit Psychiatric exam: PRESENT: appropriate affect, normal mood. ABSENT: homicidal ideation, suicidal ideation Results Laboratory Results: 09/25/18 15:00 09/28/18 06:14 09/28/18 06:14 Sodium 139.0 Potassium 4.1 Chloride 110 H Carbon Dioxide 24 Anion Gap 5 BUN 11 Creatinine 0.50 L Est GFR ( Amer) > 60 Est GFR (Non-Af Amer) > 60 Glucose 222 H Calcium 9.2 09/25/18 16:12 Eyelid - Right Gram Stain - Final 09/25/18 16:12 Eyelid - Right Wound Culture - Final Enterococcus Faecalis(Group D) Skin [place] 09/25/18 09/25/18 09/26/18 15:00 21:10 06:22 Troponin I < 0.012 < 0.012 < 0.012 Impressions: Chest CT 09/25/18 00:00 IMPRESSION: 1. No acute findings. Chest X-Ray 09/25/18 14:48 IMPRESSION: NO SIGNIFICANT RADIOGRAPHIC FINDING IN THE CHEST. Orbit CT 09/25/18 16:38 IMPRESSION: Small likely abscess in the right eye lid. No involvement of the globe. Assessment and Plan - Diagnosis (1) Abscess of right eyelid Is this a current diagnosis for this admission?: Yes Plan: Dr. Andersen, pearl glue drier in [place], recommends IV antibiotics and opthalmic Polytrim along with warm compress on the area and to keep patient upright the whole time. No need for emergent drainage at this time unless there is rapid growth of mass or no response to antibiotics. Fortunately, she has had improvement in the erythema and the swelling around her eye, with the unchanged cystic structure in her right eyelid which is chronic. I think with another day of IV antibiotics, if she shows some continued improvement, she should be able to go home on oral antibiotics tomorrow. She would be willing to follow-up with an pearl glue drier and I have recommended that she do so, because this is an issue with an infection in her eye that seems to recur once or twice every year. 09/28/2018-wound cultures came back positive for Enterococcus faecalis patient is presently on cefepime I am and Unasyn plan is to continue the antibiotic therapy. Patient is afebrile. Patient continued to show improvement. No change in the vision. Was a stable patient is willing to follow-up with pearl glue drier as outpatient.. (2) Chest pain Qualifiers: Chest pain type: unspecified Qualified Code(s): R07.9 - Chest pain, unspecified Is this a current diagnosis for this admission?: Yes Plan: Troponins are negative x3. EKG is unremarkable. May consider stress test as an outpatient. 09/28/2018-patient is still complaining of chest discomfort. CT chest on admission is negative for acute pathology. Plan to repeat the chest x-ray and do the cardiac enzymes today. (3) IDDM (insulin dependent diabetes mellitus) Is this a current diagnosis for this admission?: Yes Plan: She is on Lantus at home. Accuchecks and sliding scale. 09/28/2018-patient latest blood sugar is 94. Patient is insulin sliding scale. Dietary advice provided. hemoglobin A1c 8.4. pt is also on Lantus 30 units at bedtime. - Time Time Spent with patient: 15-24 minutes Medications reviewed and adjusted accordingly: Yes Anticipated discharge: Home
--- NOTE | 2018-09-28 15:51 | RADIOLOGY REPORT (SQ) ---
EXAM DESCRIPTION: CHEST 2 VIEWS COMPLETED DATE/TIME: 09/28/2018 3:41 pm REASON FOR STUDY: chest pain COMPARISON: 09/25/2018. EXAM PARAMETERS: NUMBER OF VIEWS: two views TECHNIQUE: Digital Frontal and Lateral radiographic views of the chest acquired. RADIATION DOSE: NA LIMITATIONS: none FINDINGS: LUNGS AND PLEURA: No opacities, masses or pneumothorax. No pleural effusion. MEDIASTINUM AND HILAR STRUCTURES: No masses or contour abnormalities. HEART AND VASCULAR STRUCTURES: Heart normal size. No evidence for failure. BONES: No acute findings. HARDWARE: None in the chest. OTHER: No other significant finding. IMPRESSION: NO ACUTE RADIOGRAPHIC FINDING IN THE CHEST. TECHNICAL DOCUMENTATION: JOB ID: [id number] [employer]- All Rights Reserved Reading location - IP/workstation name: [email or web address]
[2018-09-28 16:13] LABS: CREATINE KINASE MB < 0.22 ng/mL (<4.55); TROPONIN I < 0.012 ng/mL
[2018-09-28] MEDS ORDERED: ALBUTEROL SULFATE HFA (90 MCG/PUFF) 200 PUFF/8.5 GM MDI IH PRN (16:38)
--- NOTE | 2018-09-28 17:37 | Progress Note ---
Provider Note Provider Note: ID Consult Note Asked to review patient's chart. Pt is a 58 year old Bahraini speaking woman with PMH including tobacco use, DM, HTN, and asthma who presented with complaint of chest pain and also a second complaint of R eye pain and discharge. She was appreciated as having some conjunctival hyperemia and also purulent discharge involving the right eye and swelling with a painful upper eyelid with a round palpable lesion consistent with hordeolum. Pt had a cT of the orbits performed on 09/25 that was read as showing on the right a 1 cm low density lesion involving the right eyelid with rim enhancement consistent with a small abscess. The case was discussed via telephone with ophthalmology and patient was carey mmended to receive IV antibiotics and ophthalmic Polytrim along with warm compresses. She was prescribed both Unasyn and cefepime along with the polymyxin/trimethoprim eye drops. Impression/Recommendations In terms of hordeolum, Staph aureus is the most common cause identified. With acute mucopurulent bacterial conjunctivitis the most common organisms are Staph aureus (adults>children) or S. pneumoniae and H. influenzae (children>adults). Other Gram negative rods are rarely implicated as causing acute conjunctivitis, and the antipseudomonal activity of cefepime is unlikely to be needed. Pt also had a Gram stain and culture from the right eyelid that was sent that had Gram positive rods and rare gram positive cocci on Gram stain and that grew Enterococcus species and skin ignacia - significance of this culture result is questionable. It seems to at least in part reflect contamination. This is not what is typically associated with bacterial conjunctivitis or hordeolum, but Enterococcus would be covered by IV Unasyn (or PO Augmentin) as should methicillin susceptible Staph aureus. If there is no response, consider PO Bactrim 1 DS BID instead for activity against MRSA and I&D of the eyelid lesion, but hopefully it will improve with current management and warm compresses. Josef Contreras MD [facility] Infectious Diseases pager [phone]
--- NOTE | 2018-09-28 19:49 | EKG REPORT ---
SEVERITY:- ABNORMAL ECG - SINUS RHYTHM NONSPECIFIC T ABNORMALITIES, ANT-LAT LEADS : Confirmed by: Starr Pino MD 28-Sep-2018 19:48:43
[2018-09-28] MEDS ORDERED: INSULIN GLARGINE,HUM.REC.ANLOG 1,000 UNIT/10 ML VIAL SUBCUT SCH (22:00)
[2018-09-28 22:18] LABS: CREATINE KINASE MB < 0.22 ng/mL (<4.55); TROPONIN I < 0.012 ng/mL
[2018-09-29 03:29] LABS: ABSOLUTE EOSINOPHILS # (AUTO) 0.1 10^3/uL (0.0-0.6); ABSOLUTE LYMPHOCYTES (AUTO) 3.3 10^3/uL (0.5-4.7); ABSOLUTE MONOCYTES (AUTO) 0.6 10^3/uL (0.1-1.4); ABSOLUTE NEUT (AUTO) 2.9 10^3/uL (1.7-8.2); BASOPHILS % (AUTO) 0.5 % (0-2); HEMOGLOBIN 13.2 g/dL (12.0-15.5); LYMPHOCYTES % (AUTO) 46.8 % (13-45); MEAN CORPUSCULAR HEMOGLOBIN 29.3 pg (27.0-33.4); MEAN CORPUSCULAR HGB CONC 34.7 g/dL (32.0-36.0); MEAN CORPUSCULAR VOLUME 84 fl (80-97); MONOCYTES % (AUTO) 9.1 % (3-13); PLATELET COUNT 229 10^3/uL (150-450); RED CELL DISTRIBUTION WIDTH 14.6 % (11.5-14.0); SEGMENTED NEUTROPHILS % (AUTO) 41.6 % (42-78); TOTAL CELLS COUNTED % (AUTO) 100 %; WHITE BLOOD COUNT 7.1 10^3/uL (4.0-10.5)
[2018-09-29 03:44] LABS: ALANINE AMINOTRANSFERASE 21 U/L (9-52); ALBUMIN 3.4 g/dL (3.5-5.0); ALKALINE PHOSPHATASE 72 U/L (38-126); ANION GAP 6 (5-19); ASPARTATE AMINO TRANSFERASE 14 U/L (14-36); BILIRUBIN,DIRECT 0.2 mg/dL (0.0-0.4); BILIRUBIN,TOTAL 0.4 mg/dL (0.2-1.3); BLOOD UREA NITROGEN 20 mg/dL (7-20); CALCIUM 9.3 mg/dL (8.4-10.2); CARBON DIOXIDE 22 mmol/L (22-30); CHLORIDE 110 mmol/L (98-107); GLUCOSE 251 mg/dL (75-110); SODIUM 137.8 mmol/L (137-145); TOTAL PROTEIN 6.6 g/dL (6.3-8.2)
[2018-09-29 03:58] LABS: CREATINE KINASE MB < 0.22 ng/mL (<4.55); TROPONIN I < 0.012 ng/mL
[2018-09-29] MEDS: AMPICILLIN SODIUM/SULBACTAM NA 3 GM in NORMAL SALINE 100 ML IV SCH ×2 (05:30→13:48)
[2018-09-29] MEDS: FONDAPARINUX SODIUM INJ 2.5 MG/0.5 ML DISP.SYRIN SUBCUT SCH (08:08)
[2018-09-29] MEDS: INSULIN LISPRO 100 UNIT/ML 3 ML VIAL SUBCUT SCH ×2 (08:32→12:17)
[2018-09-29] MEDS: DILTIAZEM HCL 120 MG CAP.SR.24H PO SCH (11:05)
[2018-09-29] MEDS: LOSARTAN POTASSIUM 50 MG TABLET PO SCH (11:06)
[2018-09-29] MEDS: AMLODIPINE BESYLATE 10 MG TABLET PO SCH (11:06)
[2018-09-29] MEDS: POLYMYXIN B SULFATE/TMP OPH SOLN (10 ML/ER DISP) OD SCH ×2 (11:07→14:17)
--- NOTE | 2018-09-29 13:35 | PDOC DISCHARGE SUMMARY ---
General - Admit/Disc Date/PCP Admission Date/Primary Care Provider: 09/25/18 18:16 [facility] Discharge Date: 09/29/18 - Discharge Diagnosis (1) Abscess of right eyelid Is this a current diagnosis for this admission?: Yes Summary: Dr. Ruiz, ed educational aide in [place], recommends IV antibiotics and opthalmic Polytrim along with warm compress on the area and to keep patient upright the whole time. No need for emergent drainage at this time unless there is rapid growth of mass or no response to antibiotics. Fortunately, she has had improvement in the erythema and the swelling around her eye, with the unchanged cystic structure in her right eyelid which is chronic. I think with another day of IV antibiotics, if she shows some continued improvement, she should be able to go home on oral antibiotics tomorrow. She would be willing to follow-up with an ed educational aide and I have recommended that she do so, because this is an issue with an infection in her eye that seems to recur once or twice every year. 09/28/2018-wound cultures came back positive for Enterococcus faecalis patient is presently on cefepime I am and Unasyn plan is to continue the antibiotic therapy. Patient is afebrile. Patient continued to show improvement. No change in the vision. Was a stable patient is willing to follow-up with ed educational aide as outpatient.. 09/29/2018-the cyst on the right eyelid hordeolum is getting better. Patient is presently on ampicillin. Plan to discharge her home on amoxicillin 500 mg p.o. 3 times daily for 1 week. Patient was strongly advised to follow-up with ed educational aide in 3-5 days. During the hospital stay Dr. RUIZ the ophthalm ologist and in [place] was contacted he agreed to see the patient in his office. (2) Chest pain Is this a current diagnosis for this admission?: Yes Summary: Troponins are negative x3. EKG is unremarkable. May consider stress test as an outpatient. 09/28/2018-patient is still complaining of chest discomfort. CT chest on adm ission is negative for acute pathology. Plan to repeat the chest x-ray and do the cardiac enzymes today. 09/29/2018-patient complained of chest pain at the time of admission also yesterday. Repeat cardiac enzymes negative. Chest x-ray was negative. EKG was negative for acute pathology. Today patient is chest pain-free. (3) IDDM (insulin dependent diabetes mellitus) Is this a current diagnosis for this admission?: Yes Summary: She is on Lantus at home. Accuchecks and sliding scale. 09/28/2018-patient latest blood sugar is 94. Patient is insulin sliding scale. Dietary advice provided. hemoglobin A1c 8.4. pt is also on Lantus 30 units at bedtime. 09/29/2018-patient blood sugar today is 123. Hemoglobin A1c is 8.4. Patient is on insulin at home and she was advised to continue to take the insulin at the present doses and also advised to continue the insulin sliding scale. During the hospital stay diet exercise lifestyle modifications and consultation with the dietitian was provided. - Additional Information Resuscitation Status: Full Code Discharge Diet: Diabetic Discharge Activity: Activity As Tolerated Prescriptions: Amoxicillin 1 tab PO TID #30 tab Home Medications: Diltiazem HCl [Cardizem Cd 120 mg Capsule] 120 mg PO DAILY 09/26/18 Insulin Glargine,Hum.rec.anlog [Lantus Insulin 100 Unit/1 ml 10 ml] 30 unit SUBCUT QHS 09/26/18 Losartan Potassium [Cozaar 100 mg Tablet] 100 mg PO DAILY 09/26/18 Metformin HCl [Glucophage] 1,000 mg PO BID 09/26/18 Amoxicillin 1 tab PO TID #30 tab 09/29/18 History of Present Illness History of Present Illness: JASPREET TIM is a 58 year old female 58 year old female with a PMH of IDDM, HTN, smoker and asthma who moved here from [place] last year. She is presenting with chest pain and acute right eye redness. Conversation was done with an official nurse chief compliance officer in the ER. She developed sharp,tightness sensation on her midsternal area radiating to the interscapular area while cooking yesterday relieved by rest, 8/10 in intensity. Denies SOB. She also has recurrence of right eye redness with some purulent drainage and a small mass on the right eyelid. She has been having this same problem over the past 6-7 years and claims she it usually resolves with the eye drops she was prescribed in [place]. Tonometry was done by ER provider and it was normal. She is able to read letters from 2 meters but says it is not as sharp as compared to the left eye. The conjunctiva is very hyperemic with some purulent discharge. She has what looks like a hordeolum on the right eyelid. Orbital CT was done which showed a possible small right eyelid abscess. I did discuss case with [facility] as there is no optha service in house. Dr. Ruiz recommends IV antibiotics and opthalmic Polytrim along with warm compress on the area and to keep patient upright the whole time. No need for emergent drainage at this time unless there is rapid growth of mass or no response to antibiotics in the next 1-2 days. Hospital Course Hospital Course: 58 year old female with a PMH of IDDM, HTN, smoker and asthma who moved here from [place] last year. She is presenting with chest pain and acute right eye redness. Conversation was done with an official nurse chief compliance officer in the ER. She developed sharp,tightness sensation on her midsternal area radiating to the interscapular area while cooking yesterday relieved by rest, 8/10 in intensity. Denies SOB. She also has recurrence of right eye redness with some purulent drainage and a small mass on the right eyelid. She has been having this same problem over the past 6-7 years and claims she it usually resolves with the eye drops she was prescribed in [place]. Tonometry was done by ER provider and it was normal. She is able to read letters from 2 meters but says it is not as sharp as compared to the left eye. The conjunctiva is very hyperemic with some purulent discharge. She has what looks like a hordeolum on the right eyelid. Orbital CT was done which showed a possible small right eyelid abscess. I did discuss case with [facility] as there is no optha service in house. Dr. Ruiz recommends IV antibiotics and opthalmic Polytrim along with warm compress on the area and to keep patient upright the whole time. No need for emergent drainage at this time unless there is rapid growth of mass or no response to antibiotics in the next 1-2 days. 09/27/2018=No adverse events overnight. No new complaints. No fevers. Her vision has not changed, and the vision in the right eye has been blurry for the last 17 years. She has had a problem with her eye for 17 years, and has had this cystic structure in her eyelid during that time and apparently has an infection crop up in the right eye once or twice a year, usually associated with seasonal allergies. She has not seen an ed educational aide in years and the last time she saw 1 was in [place] many years ago when they told her at that time that they did not have the capabilities to do anything for her. 09/28/2018-no acute events in the last 24 hours. Patient is afebrile. Patient speaks very little Niuean. Family is not at bedside. Patient is not changed. Patient has a problem with right eye vision for more than 17 years. Patient admitted for possible infection of the cystic structure on the right upper eyelid. Patient is receiving IV antibiotic therapy. Currently on Unasyn and cefepime. And is to continue the present management. Physical Exam Vital Signs: Temp Pulse Resp BP Pulse Ox 98.0 F 55 L 18 149/75 H 96 09/29/18 13:23 09/29/18 13:23 09/29/18 13:23 09/29/18 13:23 09/29/18 13:23 Intake & Output 09/28/18 09/29/18 09/30/18 06:59 06:59 06:59 Intake Total 1703 400 100 Balance 1703 400 100 Weight 64.9 kg 84.6 kg General appearance: PRESENT: no acute distress Head exam: PRESENT: atraumatic Eye exam: PRESENT: PERRLA Mouth exam: PRESENT: moist, tongue midline Neck exam: ABSENT: carotid bruit, JVD, lymphadenopathy, thyromegaly Respiratory exam: PRESENT: clear to auscultation micah. ABSENT: rales, rhonchi, wheezes Cardiovascular exam: PRESENT: RRR. ABSENT: diastolic murmur, rubs, systolic murmur GI/Abdominal exam: PRESENT: normal bowel sounds, soft. ABSENT: distended, guarding, mass, organolmegaly, rebound, tenderness Rectal exam: PRESENT: deferred Extremities exam: PRESENT: full ROM. ABSENT: calf tenderness, clubbing, pedal edema Neurological exam: PRESENT: alert, awake, oriented to person, oriented to place, oriented to time, oriented to situation, CN II-XII grossly intact. ABSENT: motor sensory deficit Psychiatric exam: PRESENT: appropriate affect, normal mood. ABSENT: homicidal ideation, suicidal ideation Results Laboratory Results: 09/29/18 03:18 09/29/18 03:18 09/29/18 09/29/18 03:18 03:18 WBC 7.1 RBC 4.50 Hgb 13.2 Hct 38.0 MCV 84 MCH 29.3 MCHC 34.7 RDW 14.6 H Plt Count 229 Seg Neutrophils % 41.6 L Lymphocytes % 46.8 H Monocytes % 9.1 Eosinophils % 2.0 Basophils % 0.5 Absolute Neutrophils 2.9 Absolute Lymphocytes 3.3 Absolute Monocytes 0.6 Absolute Eosinophils 0.1 Absolute Basophils 0.0 Sodium 137.8 Potassium 4.0 Chloride 110 H Carbon Dioxide 22 Anion Gap 6 BUN 20 Creatinine 0.51 L Est GFR ( Amer) > 60 Est GFR (Non-Af Amer) > 60 Glucose 251 H Calcium 9.3 Magnesium 1.9 Total Bilirubin 0.4 AST 14 ALT 21 Alkaline Phosphatase 72 Total Protein 6.6 Albumin 3.4 L 09/25/18 09/25/18 09/26/18 15:00 21:10 06:22 Creatine Kinase CK-MB (CK-2) Troponin I < 0.012 < 0.012 < 0.012 09/28/18 09/28/18 09/28/18 15:20 15:20 21:35 Creatine Kinase 36 34 CK-MB (CK-2) < 0.22 Troponin I < 0.012 09/28/18 09/29/18 09/29/18 21:35 03:18 03:18 Creatine Kinase 32 CK-MB (CK-2) < 0.22 < 0.22 Troponin I < 0.012 < 0.012 Impressions: Chest CT 09/25/18 00:00 IMPRESSION: 1. No acute findings. Orbit CT 09/25/18 16:38 IMPRESSION: Small likely abscess in the right eye lid. No involvement of the globe. Chest X-Ray 09/28/18 00:00 IMPRESSION: NO ACUTE RADIOGRAPHIC FINDING IN THE CHEST. Qualifiers - * PATIENT BEING DISCHARGED WITH ANY OF THE FOLLOWING DIAGNOSIS: No VTE patient discharged on overlapping Therapy?: No Plan Discharge Plan: Patient is going home today. Time Spent: Less than 30 Minutes
[2018-09-29 14:08] VITALS: BP 123/67
[2018-09-30] MEDS ORDERED: ENOXAPARIN SODIUM INJ 40 MG/0.4 ML DISP.SYRIN SUBCUT SCH (08:00)
== END 2018-09-29 14:48 | disposition home or self-care (01) ==
LOC: ER 14:25 → INTOOBSV 18:16 → EH 18:16 → 4S 20:10
PROVIDERS: ADMIT Internal Medicine; ATTEND Internal Medicine
DX: H00.031 Abscess of right upper eyelid (principal); H00.013 Hordeolum externum right eye, unspecified eyelid; R07.89 Other chest pain; E11.9 Type 2 diabetes mellitus without complications; H53.8 Other visual disturbances; H53.141 Visual discomfort, right eye; I10 Essential (primary) hypertension; R51 Headache; R52 Pain, unspecified; F17.200 Nicotine dependence, unspecified, uncomplicated; M19.90 Unspecified osteoarthritis, unspecified site; Z79.4 Long term (current) use of insulin; Z79.899 Other long term (current) drug therapy
CPT/HCPCS: 93005 ×3; 99285; 96375; 96365; 36415 ×4; 87040; 87070; 87205; 82553 ×2; 82962 ×5; 82550 ×2; 83735; 85025 ×2; 87077; 80048; 80053 ×2; 84484 ×4; 86701; 87186; 83036; 71046; 71045; 70481; 71250; 93010 ×2; G0378 ×6; J1815 ×5; J0295 ×5; J3490 ×6; J1885; J1652; J0692 ×4

== ENCOUNTER 2019-01-26 11:14 | Emergency (ER) | payer MEDICAID, OTHER ==
[2019-01-26] MEDS ORDERED: ACETAMINOPHEN 325 MG TABLET PO ONE (12:19)
--- NOTE | 2019-01-26 12:20 | ER Document Report ---
ED Medical Screen (RME) - General Chief Complaint: Chest Pain Stated Complaint: CHEST PAIN Time Seen by Provider: 01/26/19 11:54 Primary Care Provider: FAZAL ADEN MD [Primary Care Provider] - Follow up as needed Notes: Patient is a 58-year-old female with a history of hypertension and diabetes who presents to the emergency department with a chief complaint of headache and chest pain. Patient states she did go her to her primary care physician this morning for a routine visit and was sent here for further evaluation of her chest pain and elevated blood pressure. Patient states last she noticed she had a headache. She reports she also developed intermittent chest pain that radiated to her upper back. Patient states all of the symptoms have been intermittent since last . Patient states she feels like her blood pressure is elevated. Patient reports a throbbing headache rating it a 5 out of 5. Patient states when she does have the chest pain she developed numbness to the left arm and left leg, which is also intermittent. TRAVEL OUTSIDE OF THE [place] IN LAST 30 DAYS: No - Related Data Allergies/Adverse Reactions: clopidogrel [From Plavix] Allergy (Verified 01/26/19 11:15) Past Medical History - Past Medical History Cardiac Medical History: Reports: Hx Hypertension Pulmonary Medical History: Reports: Hx Asthma Endocrine Medical History: Reports: Hx Diabetes Mellitus Type 2 Renal/ Medical History: Denies: Hx Peritoneal Dialysis Musculoskeltal Medical History: Reports Hx Arthritis Past Surgical History: Reports: Hx Tubal Ligation Physical Exam - Vital signs Vitals: Temp Pulse Resp BP Pulse Ox 98.3 F 95 18 161/95 H 97 01/26/19 11:26 01/26/19 11:26 01/26/19 11:26 01/26/19 11:26 01/26/19 11:26 Interpretation: Hypertensive - Cardiovascular Rhythm: Regular Heart sounds: Normal auscultation, S1 appreciated, S2 appreciated - Abdominal Inspection: Normal Distension: No distension Bowel sounds: Normal Tenderness: Nontender Organomegaly: No organomegaly Course - Re-evaluation Re-evalutation: 01/26/19 12:19 I have greeted and performed a rapid initial assessment of this patient. A comprehensive ED assessment and evaluation of the patient, analysis of test results and completion of the medical decision making process will be conducted by additional ED providers. - Vital Signs Vital signs: Temp Pulse Resp BP Pulse Ox 98.3 F 95 18 161/95 H 97 01/26/19 11:26 01/26/19 11:26 01/26/19 11:26 01/26/19 11:26 01/26/19 11:26 Doctor's Discharge - Discharge Referrals: FAZAL ADEN MD [Primary Care Provider] - Follow up as needed
[2019-01-26 12:28] LABS: ABSOLUTE EOSINOPHILS # (AUTO) 0.1 10^3/uL (0.0-0.6); ABSOLUTE MONOCYTES (AUTO) 0.5 10^3/uL (0.1-1.4); ABSOLUTE NEUT (AUTO) 7.1 10^3/uL (1.7-8.2); BASOPHILS % (AUTO) 0.3 % (0-2); EOSINOPHILS % (AUTO) 0.6 % (0-6); HEMATOCRIT 43.7 % (36.0-47.0); HEMOGLOBIN 14.6 g/dL (12.0-15.5); MEAN CORPUSCULAR HEMOGLOBIN 27.8 pg (27.0-33.4); MEAN CORPUSCULAR HGB CONC 33.5 g/dL (32.0-36.0); MEAN CORPUSCULAR VOLUME 83 fl (80-97); MONOCYTES % (AUTO) 4.4 % (3-13); PLATELET COUNT 249 10^3/uL (150-450); RED BLOOD COUNT 5.28 10^6/uL (3.72-5.28); RED CELL DISTRIBUTION WIDTH 15.7 % (11.5-14.0); SEGMENTED NEUTROPHILS % (AUTO) 66.7 % (42-78); TOTAL CELLS COUNTED % (AUTO) 100 %; WHITE BLOOD COUNT 10.7 10^3/uL (4.0-10.5)
[2019-01-26 12:49] LABS: ALBUMIN 4.1 g/dL (3.5-5.0); ALKALINE PHOSPHATASE 92 U/L (38-126); ANION GAP 9 (5-19); ASPARTATE AMINO TRANSFERASE 19 U/L (14-36); BILIRUBIN,DIRECT 0.3 mg/dL (0.0-0.4); BILIRUBIN,TOTAL 0.7 mg/dL (0.2-1.3); BLOOD UREA NITROGEN 12 mg/dL (7-20); CALCIUM 9.4 mg/dL (8.4-10.2); CARBON DIOXIDE 26 mmol/L (22-30); CHLORIDE 105 mmol/L (98-107); GLUCOSE 242 mg/dL (75-110); POTASSIUM 4.1 mmol/L (3.6-5.0); TOTAL PROTEIN 7.8 g/dL (6.3-8.2)
--- NOTE | 2019-01-26 13:03 | RADIOLOGY REPORT (SQ) ---
EXAM DESCRIPTION: CHEST 2 VIEWS COMPLETED DATE/TIME: 01/26/2019 12:51 pm REASON FOR STUDY: chest pain COMPARISON: 09/28/2018 EXAM PARAMETERS: NUMBER OF VIEWS: two views TECHNIQUE: Digital Frontal and Lateral radiographic views of the chest acquired. RADIATION DOSE: NA LIMITATIONS: none FINDINGS: LUNGS AND PLEURA: No opacities, masses or pneumothorax. No pleural effusion. MEDIASTINUM AND HILAR STRUCTURES: No masses or contour abnormalities. HEART AND VASCULAR STRUCTURES: Heart normal size. No evidence for failure. BONES: No acute findings. HARDWARE: None in the chest. OTHER: No other significant finding. IMPRESSION: NO ACUTE RADIOGRAPHIC FINDING IN THE CHEST. TECHNICAL DOCUMENTATION: JOB ID: [id number] [employer]- All Rights Reserved Reading location - IP/workstation name: [email or web address]
--- NOTE | 2019-01-26 13:19 | RADIOLOGY REPORT (SQ) ---
EXAM DESCRIPTION: CT HEAD WITHOUT COMPLETED DATE/TIME: 01/26/2019 12:54 pm REASON FOR STUDY: headache COMPARISON: None. TECHNIQUE: Axial images acquired through the brain without intravenous contrast. Images reviewed wi th bone, brain and subdural windows. Additional sagittal and coronal reconstructions were generated. Images stored on PACS. All CT scanners at this facility use dose modulation, iterative reconstruction, and/or weight based d osing when appropriate to reduce radiation dose to as low as reasonably achievable (ALARA). [facility]: Dose Right [facility]: CareDose [facility]: Dose Right [facility]: Teradose 4D [facility]: QSecure RADIATION DOSE: CT Rad equipment meets quality standard of care and radiation dose reduction techniq ues were employed. CTDIvol: 53.2 mGy. DLP: 1017 mGy-cm. mGy. LIMITATIONS: None. FINDINGS: VENTRICLES: Normal size and contour. CEREBRUM: No masses. No hemorrhage. No midline shift. No evidence for acute infarction. Normal gra y/white matter differentiation. No areas of low density in the white matter. CEREBELLUM: No masses. No hemorrhage. No alteration of density. No evidence for acute infarction. EXTRAAXIAL SPACES: No fluid collections. No masses. ORBITS AND GLOBE: No intra- or extraconal masses. Normal contour of globe without masses. CALVARIUM: No fracture. PARANASAL SINUSES: No fluid or mucosal thickening. SOFT TISSUES: No mass or hematoma. OTHER: No other significant finding. IMPRESSION: NO ACUTE INTRACRANIAL IMAGING FINDINGS. EVIDENCE OF ACUTE STROKE: NO. COMMENT: Quality ID # [id number]: Final reports with documentation of one or more dose reduction techniques (e.g., Automated exposure control, adjustment of the mA and/or kV according to patient size, use of iterative reconstruction technique) TECHNICAL DOCUMENTATION: JOB ID: [id number] [employer]- All Rights Reserved Reading location - IP/workstation name: [email or web address]
--- NOTE | 2019-01-26 14:40 | EKG REPORT ---
SEVERITY:- BORDERLINE ECG - SINUS TACHYCARDIA BORDERLINE T WAVE ABNORMALITIES : Confirmed by: Shirley Leslie 26-Jan-2019 14:39:44
[2019-01-26] MEDS ORDERED: IPRATROPIUM/ALBUTEROL 0.5-2.5 MG/3 ML AMPUL NEB ONE ×2 (14:42→17:18)
[2019-01-26] MEDS ORDERED: DIPHENHYDRAMINE HCL 25 MG CAPSULE PO ONE (14:46)
[2019-01-26] MEDS ORDERED: METOCLOPRAMIDE HCL ORAL SOLN 10 MG/10 ML UDCUP PO ONE ×2 (14:46→18:00)
--- NOTE | 2019-01-26 14:46 | ER Document Report ---
ED General - General Chief Complaint: Chest Pain Stated Complaint: CHEST PAIN Time Seen by Provider: 01/26/19 11:54 Primary Care Provider: FAZAL ADEN MD [ACTIVE STAFF] - Follow up as needed Mode of Arrival: Ambulatory Information source: Patient, Relative, [facility] Records Notes: 58-year-old female with hypertension, diabetes, COPD presents with complaint of chest pain that started 1 week prior to arrival. Patient's daughter is at the bedside and acts as supply chain associate. She describes the pain as initially constant and sharp but now intermittent and dull. Patient has had a persistent cough for several years due to her pack per day smoking. She denies any associated nausea, diaphoresis, dizziness. Patient was to establish primary care today but had a systolic blood pressure of 180 which prompted urgent care to transfer her to the emergency department. Patient does take losartan and Cardizem for her blood pressure and states she has been compliant. TRAVEL OUTSIDE OF THE [place] IN LAST 30 DAYS: No - HPI Onset: Last week Onset/Duration: Gradual, Persistent, Better Quality of pain: Sharp Severity: Mild Pain Level: 1 Associated symptoms: Chest pain, Nonproductive cough, Headache. denies: Chills, Nausea, Vomiting, Shortness of breath, Sweating Exacerbated by: Coughing, Deep breathing Similar symptoms previously: Yes Recently seen / treated by doctor: No - Related Data Allergies/Adverse Reactions: clopidogrel [From Plavix] Allergy (Verified 01/26/19 11:15) Past Medical History - General Information source: Patient - Social History Smoking Status: Current Every Day Smoker Cigarette use (# per day): Yes - 20 Smoking Education Provided: Yes - Smoking cessation counseling was provided for 4 minutes at the bedside Frequency of alcohol use: None Drug Abuse: None Lives with: Family Family History: Reviewed & Not Pertinent Patient has suicidal ideation: No Patient has homicidal ideation: No - Past Medical History Cardiac Medical History: Reports: Hx Hypertension Pulmonary Medical History: Reports: Hx Asthma Endocrine Medical History: Reports: Hx Diabetes Mellitus Type 2 Renal/ Medical History: Denies: Hx Peritoneal Dialysis Musculoskeletal Medical History: Reports Hx Arthritis Past Surgical History: Reports: Hx Tubal Ligation Review of Systems - Review of Systems Notes: REVIEW OF SYSTEMS: CONSTITUTIONAL : Denies fever, chills, or sweats. Denies recent illness. Denies weight loss, recent hospitalizations. EENT: Denies visual changes, eye pain. Denies sore throat, oral lesions, difficulty swallowing. CARDIOVASCULAR: + chest pain. Denies palpitations. Denies lower extremity edema. RESPIRATORY: + cough. Denies shortness of breath, wheezing. GASTROINTESTINAL: Denies abdominal pain or distention. Denies nausea, vomiting, or diarrhea. Denies blood in vomitus, stools, or per rectum. Denies black, tarry stools. Denies constipation. GENITOURINARY: Denies difficulty urinating, painful urination, frequency, blood in urine, or vaginal discharge. MUSCULOSKELETAL: Denies back or neck pain or stiffness. Denies joint pain or swelling. SKIN: Denies rash, lesions or sores. HEMATOLOGIC : Denies easy bruising or bleeding. LYMPHATIC: Denies swollen glands. NEUROLOGICAL: Denies confusion or altered mental status. Denies loss of consciousness. Denies dizziness or lightheadedness. Denies headache. Denies weakness or paralysis. Denies problems difficulty with ambulation, slurred speech. Denies sensory loss, numbness, or tingling. Denies seizures. PSYCHIATRIC: Denies anxiety or stress. Denies depression, suicidal ideation, or homicidal ideation. Denies visual or auditory hallucinations. Physical Exam - Vital signs Vitals: Temp Pulse Resp BP Pulse Ox 98.3 F 95 18 161/95 H 97 01/26/19 11:26 01/26/19 11:26 01/26/19 11:26 01/26/19 11:26 01/26/19 11:26 - Notes Notes: PHYSICAL EXAMINATION: GENERAL: Well-appearing, well-nourished and in no acute distress. HEAD: Atraumatic, normocephalic. EYES: Pupils equal round and reactive to light, extraocular movements intact, conjunctiva are normal. ENT: Nares patent, oropharynx clear without exudates. Moist mucous membranes. NECK: Normal range of motion, supple without lymphadenopathy LUNGS: Breath sounds clear to auscultation bilaterally and equal. No wheezes rales or rhonchi. HEART: Regular rate and rhythm without murmurs ABDOMEN: Soft, nontender, nondistended abdomen. No guarding, no rebound. No masses appreciated. Female : deferred Musculoskeletal: Normal range of motion, no pitting or edema. No cyanosis. NEUROLOGICAL: Neuro exam Mental status; alert and oriented x3. Cranial nerves II through XII intact. Sensation intact to sharp/dull differentiation in all extremities. Motor; normal tone. No abnormal movements appreciated. No pronator drift. Strength tested and 5/5 in bilateral wrist flexion/extension, elbow flexion/extension, shoulder abduction, straight leg raise, knee flexion/extension, ankle dorsiflexion/plantar flexion. Patient ambulates with a steady gait. Coordination; no ataxia. Finger to nose and heel to wyatt testing intact bilaterally. Reflexes; brachial radialis, biceps, and patellar reflexes within normal limits and symmetric bilaterally. Babinski with downgoing toes bilaterally. PSYCH: Normal mood, normal affect. SKIN: Warm, Dry, normal turgor, no rashes or lesions noted. Course - Re-evaluation Re-evalutation: 01/26/19 18:25 Laboratory 01/26/19 01/26/19 01/26/19 12:06 12:06 12:06 WBC 10.7 H RBC 5.28 Hgb 14.6 Hct 43.7 MCV 83 MCH 27.8 MCHC 33.5 RDW 15.7 H Plt Count 249 Seg Neutrophils % 66.7 Lymphocytes % 28.0 Monocytes % 4.4 Eosinophils % 0.6 Basophils % 0.3 Absolute Neutrophils 7.1 Absolute Lymphocytes 3.0 Absolute Monocytes 0.5 Absolute Eosinophils 0.1 Absolute Basophils 0.0 D-Dimer Sodium 140.3 Potassium 4.1 Chloride 105 Carbon Dioxide 26 Anion Gap 9 BUN 12 Creatinine 0.44 L Est GFR ( Amer) > 60 Est GFR (Non-Af Amer) > 60 Glucose 242 H Calcium 9.4 Total Bilirubin 0.7 Direct Bilirubin 0.3 Neonat Total Bilirubin Not Reportable Neonat Direct Bilirubin Not Reportable Neonat Indirect Bili Not Reportable AST 19 ALT 13 Alkaline Phosphatase 92 Troponin I < 0.012 Total Protein 7.8 Albumin 4.1 01/26/19 01/26/19 12:06 14:55 WBC RBC Hgb Hct MCV MCH MCHC RDW Plt Count Seg Neutrophils % Lymphocytes % Monocytes % Eosinophils % Basophils % Absolute Neutrophils Absolute Lymphocytes Absolute Monocytes Absolute Eosinophils Absolute Basophils D-Dimer 0.28 Sodium Potassium Chloride Carbon Dioxide Anion Gap BUN Creatinine Est GFR ( Amer) Est GFR (Non-Af Amer) Glucose Calcium Total Bilirubin Direct Bilirubin Neonat Total Bilirubin Neonat Direct Bilirubin Neonat Indirect Bili AST ALT Alkaline Phosphatase Troponin I < 0.012 Total Protein Albumin Chest X-Ray 01/26/19 12:04 IMPRESSION: NO ACUTE RADIOGRAPHIC FINDING IN THE CHEST. Head CT 01/26/19 12:15 IMPRESSION: NO ACUTE INTRACRANIAL IMAGING FINDINGS. EVIDENCE OF ACUTE STROKE: NO. Temp Pulse Resp BP Pulse Ox 98.3 F 86 24 H 163/87 H 95 01/26/19 11:26 01/26/19 12:30 01/26/19 17:14 01/26/19 17:14 01/26/19 17:14 58-year-old female presented with chief complaint of chest pain. Throughout the ED course she then begins to complain of headache and left-sided weakness. Patient does have some decreased strength on the left side but otherwise has a normal neurologic exam. Upon arrival vitals were reviewed and patient is hypertensive but afebrile. EKG was obtained which showed the patient to be in normal sinus rhythm and she was placed on hall monitor. CBC is without leukocytosis. CMP shows hyperglycemia without evidence of DKA. Cardiac enzymes including delta troponin are within normal limits. CT of the head and chest x- ray are also within normal limits. MRI was obtained and results pending. MRI is without evidence of stroke. Patient was reevaluated multiple times and is alert, awake and well-appearing. Results discussed with the patient via the daughter who is a fluent supply chain associate. Patient headache has resolved and is currently chest pain-free. HEART Score: History-0 ECG-0 Age-1 Risk Factors-2 Troponin-0 Total: 3 If HEART score is = 3 AND both troponin measurements are normal, the 30 day risk of a major adverse cardiac event (all-cause mortality, myocardial infarction or need for coronary revascularization) is < 1% (Sensitivity 100%, NPV 100%). Chest pain in a patient without evidence of cardiac or other serious etiology on workup today. I discussed with patient that, based on their age, risk factors and emergency department testing today, the likelihood that their symptoms are related to a heart attack is very low (estimated risk of heart attack or over the next 30 days of less than 1%). The patient demonstrates decision making capacity and has verbalized an understanding of these risks to me. Based on this, the patient has chosen to follow-up as an outpatient. Usual chest pain return precautions reviewed. The patient states understanding and agreement with this plan. 01/28/19 00:58 Chest X-Ray 01/26/19 12:04 IMPRESSION: NO ACUTE RADIOGRAPHIC FINDING IN THE CHEST. Head CT 01/26/19 12:15 IMPRESSION: NO ACUTE INTRACRANIAL IMAGING FINDINGS. EVIDENCE OF ACUTE STROKE: NO. Head MRI 01/26/19 15:21 IMPRESSION: NORMAL MRI OF THE BRAIN WITHOUT INTRAVENOUS GADOLINIUM CONTRAST. EVIDENCE OF ACUTE STROKE: NO. - Vital Signs Vital signs: Temp Pulse Resp BP Pulse Ox 98.3 F 86 21 H 160/82 H 95 01/26/19 11:26 01/26/19 12:30 01/26/19 19:01 01/26/19 19:00 01/26/19 19:01 - Laboratory Result Diagrams: 01/26/19 12:06 01/26/19 12:06 Laboratory results interpreted by me: 01/26/19 01/26/19 12:06 12:06 WBC 10.7 H RDW 15.7 H Creatinine 0.44 L Glucose 242 H - Diagnostic Test Radiology reviewed: Image reviewed, Reports reviewed Discharge - Discharge Clinical Impression: Left arm weakness Chest pain Qualifiers: Chest pain type: unspecified Qualified Code(s): R07.9 - Chest pain, unspecified Headache Qualifiers: Headache type: unspecified Headache chronicity pattern: unspecified pattern Intractability: not intractable Qualified Code(s): R51 - Headache Hypertension Qualifiers: Hypertension type: unspecified Qualified Code(s): I10 - Essential (primary) hypertension Condition: Good Disposition: HOME, SELF-CARE Instructions: Chest Pain of Unclear Cause ([facility]), Headache ([facility]) Additional Instructions: You were seen today for chest pain. The exact cause of your pain is unclear. However, based on your cardiac enzyme testing, chest x-ray, and EKG it does not appear that it is from an immediately life-threatening cause at this time. Although your testing here is normal is critical that you follow-up with your primary care physician for continued evaluation of this chest pain and possible stress testing. I recommended you see your physician within the next 24-48 hours to be evaluated for consideration of a stress test. Please return to emergency department immediately if you have worsening of your chest pain, shortness of breath, vomiting, become unable to exert yourself due to pain or difficulty breathing, you pass out, or have any pain that radiates into your arms, jaw, or back. Please also return if you have any additional symptoms that are concerning to you. Forms: Elevated Blood Pressure Referrals: FAZAL ADEN MD [ACTIVE STAFF] - Follow up as needed
[2019-01-26] MEDS ORDERED: ASPIRIN 81 MG TABLET, CHEWABLE PO ONE (14:47)
[2019-01-26] MEDS ORDERED: ACETAMINOPHEN 325 MG TABLET ONE (17:18)
[2019-01-26] MEDS ORDERED: DIPHENHYDRAMINE HCL 25 MG CAPSULE ONE (17:18)
[2019-01-26] MEDS ORDERED: ASPIRIN 81 MG TABLET, CHEWABLE ONE (17:19)
--- NOTE | 2019-01-26 18:34 | RADIOLOGY REPORT (SQ) ---
EXAM DESCRIPTION: MRI HEAD WITHOUT COMPLETED DATE/TIME: 01/26/2019 6:25 pm REASON FOR STUDY: weakness COMPARISON: None. TECHNIQUE: Multiplanar imaging includes non-contrasted T1, T2, FLAIR, and diffusion with ADC map seq uences. Images stored on PACS. LIMITATIONS: None. FINDINGS: ANATOMY: No anomalies. Normal vascular flow voids. Pituitary fossa normal. CSF SPACES: Normal in size and contour. No hemorrhage. CEREBRUM: Sulci and gyri normal in size and contour. Normal white matter signal on FLAIR imaging. No evidence of hemorrhage, mass, or extraaxial fluid collection. POSTERIOR FOSSA: No signal alteration. No hemorrhage. No edema, masses or mass effect. Internal felipa tory canals, cerebello-pontine angles, mastoids normal. DIFFUSION IMAGING: Negative for acute or sub-acute infarction. ORBITS: No masses. Globes normal. PARANASAL SINUSES: No fluid levels. Mucosa normal. OTHER: No other significant finding. IMPRESSION: NORMAL MRI OF THE BRAIN WITHOUT INTRAVENOUS GADOLINIUM CONTRAST. EVIDENCE OF ACUTE STROKE: NO. TECHNICAL DOCUMENTATION: JOB ID: [id number]- All Rights Reserved Reading location - IP/workstation name: [email or web address]
[2019-01-26 19:09] VITALS: BP 160/82
== END 2019-01-26 19:30 | disposition home or self-care (01) ==
LOC: ER 11:14
DX: R53.1 Weakness (principal); R07.9 Chest pain, unspecified; R51 Headache; R05 Cough; F17.210 Nicotine dependence, cigarettes, uncomplicated; I10 Essential (primary) hypertension; J44.9 Chronic obstructive pulmonary disease, unspecified; E11.9 Type 2 diabetes mellitus without complications; Z98.51 Tubal ligation status
CPT/HCPCS: 93005; 99406; 94640; 99285; 36415; 85025; 80053; 84484; 85379; 70551; 71046; 70450; 93010; J3490 ×3; J7620

== ENCOUNTER → 2019-04-22 | Outpatient (CLI) | payer MEDICAID, OTHER ==
[2019-04-22 13:03] LABS: HEMOGLOBIN 14.6 g/dL (12.0-15.5); MEAN CORPUSCULAR HEMOGLOBIN 28.3 pg (27.0-33.4); MEAN CORPUSCULAR HGB CONC 33.8 g/dL (32.0-36.0); MEAN CORPUSCULAR VOLUME 84 fl (80-97); PLATELET COUNT 249 10^3/uL (150-450); RED BLOOD COUNT 5.14 10^6/uL (3.72-5.28); RED CELL DISTRIBUTION WIDTH 15.2 % (11.5-14.0); WHITE BLOOD COUNT 9.8 10^3/uL (4.0-10.5)
[2019-04-22 13:23] LABS: ALKALINE PHOSPHATASE 102 U/L (38-126); ANION GAP 9 (5-19); ASPARTATE AMINO TRANSFERASE 15 U/L (14-36); BILIRUBIN,DIRECT 0.2 mg/dL (0.0-0.4); BILIRUBIN,TOTAL 0.6 mg/dL (0.2-1.3); BLOOD UREA NITROGEN 8 mg/dL (7-20); CALCIUM 9.6 mg/dL (8.4-10.2); CARBON DIOXIDE 24 mmol/L (22-30); CHLORIDE 108 mmol/L (98-107); CHOLESTEROL 178.51 mg/dL (0-200); GLUCOSE 259 mg/dL (75-110); POTASSIUM 4.6 mmol/L (3.6-5.0); TOTAL PROTEIN 7.5 g/dL (6.3-8.2); TRIGLYCERIDES 153 mg/dL (<150)
[2019-04-22 13:33] LABS: DIRECT LDL 127 mg/dL (<100)
[2019-04-22 13:40] LABS: VLDL CHOLESTEROL 30.6 mg/dL (10-31)
== END ==
LOC: OD 12:03
PROVIDERS: ATTEND Physician Assistant
DX: R07.9 Chest pain, unspecified (principal); E78.5 Hyperlipidemia, unspecified; E11.9 Type 2 diabetes mellitus without complications; I10 Essential (primary) hypertension; R00.2 Palpitations
CPT/HCPCS: 36415; 80048; 80061; 80076; 83735; 84443; 85027

== ENCOUNTER → 2019-08-16 | Outpatient (CLI) | payer MEDICAID ==
[~2019-08-16] MED LIST: AMINOPHYLLINE INJ/PF 250 MG/10 ML SDV IV ONE; REGADENOSON INJ 0.4 MG/5 ML DISP.SYRIN IV ONE
--- NOTE | 2019-08-16 18:37 | DRAGON STRESS TEST REPORT ---
Rest/stress single isotope Cardiolite stress imaging using IV Lexiscan and gated SPECT imaging. Indication: Atypical chest pains Clinical history: This 59 years old [place] female with no known coronary artery disease with cardiac risk factors of [hypertension diabetes dyslipidemia and smoking], current symptomatology includes [chest pains]. Report: Patient received IV Lexiscan[ 0.4] mg infused over 10 seconds and flushed. The resting heart rate was 84 bpm and increased to 152 bpm at end infusion. The resting blood pressure was 127/73 and increased to 138/82 at end infusion. The patient had symptoms of tightness in chest and shortness of breath but no chest pains, nausea, numbness in the lips, and headache. These symptoms were reversed with 75 mg IV Aminophyllin 5 minutes after IV Lexiscan injection. In retrospect, patient's persistent headache was pre-existing. The resting 12-lead EKG showed NSR [address] segments.. At end infusion, mild nonspecific ST flattening changes were seen. Myocardial perfusion imaging was performed at rest[ 60] minutes following the injection of 10.82 mCi of Cardiolite. 10 seconds after the IV Lexiscan infusion, patient was injected with 33.0 mCi of Cardiolite and flushed. Gated post stress tomographic imaging was performed [60] minutes after stress. FINDINGS The overall quality of the study is fair. The ventricular cavity is noted to be normal in size on both the rest and stress studies. There is no evidence of any transient ischemic dilatation of the left ventricle, T ID ratio was 0.94 and normal. SPECT images showed no IV Lexiscan induced reversible ischemia and no fixed perfusion defects. Gated SPECT image showed normal motion contraction of all LV segments. The LVEF was 51%, this needs to be related with echo LVEF. Impression Myocardial perfusion imaging is normal. There is no evidence of IV Lexiscan induced reversible ischemia and no fixed perfusion defects. Gated study showed LVEF to be 51% with no regional wall motion abnormality. No prior study for comparison. [facility]
== END ==
LOC: RAD 06:42
PROVIDERS: ATTEND Internal Medicine Cardiovascular Disease
DX: R07.9 Chest pain, unspecified (principal); I10 Essential (primary) hypertension; E11.9 Type 2 diabetes mellitus without complications; F17.200 Nicotine dependence, unspecified, uncomplicated
CPT/HCPCS: 93017; 78452; A9500; J2785; J0280; Q9969

== ENCOUNTER → 2019-09-12 | Outpatient (CLI) | payer MEDICAID, OTHER ==
--- NOTE | 2019-09-12 09:52 | WOMENS IMAGING REPORT ---
EXAM DESCRIPTION: U/S ABDOMEN LIMITED IMAGES COMPLETED DATE/TIME: 09/12/2019 8:41 am REASON FOR STUDY: R10.816 EPIGASTRIC ABDOMINAL TENDERNESS R10.816 EPIGASTRIC ABDOMINAL TENDERNESS COMPARISON: None. TECHNIQUE: Dynamic and static grayscale images acquired of the abdomen and recorded on PACS. Additio nal selected color Doppler and spectral images recorded. LIMITATIONS: None. FINDINGS: PANCREAS: No masses. Visualized pancreatic duct normal caliber. LIVER: No masses. Echotexture normal. LIVER VASCULATURE: Normal directional flow of the main portal vein and hepatic veins. GALLBLADDER: No stones. Normal wall thickness. No pericholecystic fluid. ULTRASOUND-DETECTED CANNON'S SIGN: Negative. INTRAHEPATIC DUCTS AND COMMON DUCT: CBD and intrahepatic ducts normal caliber. No filling defects. INFERIOR VENA CAVA: Normal flow. AORTA: No aneurysm. RIGHT KIDNEY: Normal size. Normal echogenicity. No solid or suspicious masses. No hydronephrosis. No calcifications. PERITONEAL AND RIGHT PLEURAL SPACE: No ascites or effusions. OTHER: No other significant findings. IMPRESSION: NORMAL RIGHT UPPER QUADRANT ULTRASOUND. TECHNICAL DOCUMENTATION: JOB ID: [id number] 2010 [employer]- All Rights Reserved Reading location - IP/workstation name: [email or web address]
== END ==
LOC: WI 07:35
PROVIDERS: ATTEND Physician Assistant
DX: R10.816 Epigastric abdominal tenderness (principal)
CPT/HCPCS: 76705

== ENCOUNTER → 2019-11-02 | Outpatient (CLI) | payer MEDICAID, OTHER ==
--- NOTE | 2019-11-02 11:34 | RADIOLOGY REPORT (SQ) ---
EXAM DESCRIPTION: NM HIDA SCAN WITH CCK IMAGES COMPLETED DATE/TIME: 11/02/2019 11:05 am REASON FOR STUDY: (R10.13)EPIGASTRIC PAIN R10.13 EPIGASTRIC PAIN COMPARISON: Abdominal ultrasound dated 09/12/2019 RADIONUCLIDE AND DOSE: DOSAGE RADIONUCLIDE: 5.47 millicuries Tc99m Mebrofenin. DOSAGE CCK: 1.3 micrograms. DOSAGE MORPHINE: Not required. The route of agent administration: Intravenous TECHNIQUE: Serial imaging right upper quadrant up to 60 minutes following injection of radionuclide. CCK injected after gallbladder visualized. LIMITATIONS: None. FINDINGS: LIVER: Normal visualization without areas of photopenia. INTRA AND EXTRAHEPATIC BILE DUCTS: Normal accumulation of activity. GALLBLADDER: Normal visualization. Calculated Ejection Fraction of 24%. Below the normal value of 35 % or greater. PHYSICAL RESPONSE: Patients presenting complaint was reproduced. OTHER: No other significant finding. IMPRESSION: LOW GALLBLADDER EJECTION FRACTION. EVIDENCE FOR BILIARY DYSKINESIS. NO CYSTIC OR COMMO N DUCT OBSTRUCTION. TECHNICAL DOCUMENTATION: JOB ID: [id number] 2010 [employer]- All Rights Reserved Reading location - IP/workstation name: [email or web address]
== END ==
LOC: RAD 07:02
PROVIDERS: ATTEND Internal Medicine Gastroenterology
DX: K82.8 Other specified diseases of gallbladder (principal); R10.13 Epigastric pain
CPT/HCPCS: 78227; J2805; A9537; Q9969

== ENCOUNTER 2019-11-11 06:59 | Day surgery (SDC) | payer MEDICAID, OTHER ==
[~2019-11-11 06:59] MED LIST changes: -AMINOPHYLLINE INJ/PF 250 MG/10 ML SDV IV ONE; +PROPOFOL INJ 200 MG/20 ML VIAL IV ONE; -REGADENOSON INJ 0.4 MG/5 ML DISP.SYRIN IV ONE
[2019-11-11] MEDS ORDERED: FENTANYL CITRATE INJ/PF 100 MCG/2 ML AMPUL IV PRN ×3 (07:49)
[2019-11-11] MEDS ORDERED: MEPERIDINE HCL/PF INJ 25 MG/1 ML DISP.SYRIN IV PRN (07:49)
[2019-11-11] MEDS ORDERED: PROMETHAZINE HCL INJ 25 MG/1 ML VIAL IV PRN ×2 (07:49)
[2019-11-11] MEDS ORDERED: DIPHENHYDRAMINE HCL 50 MG/ML VIAL IV PRN (07:49)
[2019-11-11] MEDS ORDERED: ONDANSETRON HCL INJ/PF 4 MG/2 ML SDV IV PRN (07:49)
--- NOTE | 2019-11-11 10:59 | Operative Report ---
Operative Report DATE OF SURGERY: 11/11/19 Operative Report: The risks benefits and alternatives of the procedure explained to the patient in detail and informed consent is obtained.A GIF Olympus video scope was inserted into the patient's mouth and hypopharynx, the esophagus is identified intubated and insufflated, the scope was then advanced through the esophagus stomach and duodenum, retroflexion maneuver is done the esophagus stomach and first and second portions of the duodenum examined PREOPERATIVE DIAGNOSIS: Epigastric pain POSTOPERATIVE DIAGNOSIS: Gastritis status post biopsy, small gastric erosion noted OPERATION: EGD with biopsy SURGEON: HIRAL BETH ANESTHESIA: LMAC TISSUE REMOVED OR ALTERED: As noted above. COMPLICATIONS: None. ESTIMATED BLOOD LOSS: None. INTRAOPERATIVE FINDINGS: As noted above. PROCEDURE: Patient tolerated the procedure well. No immediate postprocedure complications are noted. Patient is discharged in good condition. Discharge date 11/11/2019. Discharge diet: Regular. Discharge activity: Regular. 2 to 3-week follow-up to discuss findings. Patient is instructed to call the office or proceed to the emergency room should there be any further problems questions. Wait on the pathology.
[2019-11-11 11:28] VITALS: BP 125/76
== END 2019-11-11 11:35 | disposition home or self-care (01) ==
LOC: OROUT 06:59
PROVIDERS: ATTEND Internal Medicine Gastroenterology
DX: K29.50 Unspecified chronic gastritis without bleeding (principal); K25.9 Gastric ulcer, unspecified as acute or chronic, without hemorrhage or perforation; Z03.818 Encounter for observation for suspected exposure to other biological agents ruled out; K21.9 Gastro-esophageal reflux disease without esophagitis; E78.00 Pure hypercholesterolemia, unspecified; J45.909 Unspecified asthma, uncomplicated; I10 Essential (primary) hypertension; E11.9 Type 2 diabetes mellitus without complications; F17.210 Nicotine dependence, cigarettes, uncomplicated; J44.9 Chronic obstructive pulmonary disease, unspecified; E78.5 Hyperlipidemia, unspecified; Z79.4 Long term (current) use of insulin; Z79.84 Long term (current) use of oral hypoglycemic drugs; Z79.899 Other long term (current) drug therapy; Z88.8 Allergy status to other drugs, medicaments and biological substances
CPT/HCPCS: 43239; 36415; 82962; 84132; 87635; 88342 ×2; 88305 ×2; 00731; J2704; 731

== ENCOUNTER → 2019-12-07 | Outpatient (CLI) | payer MEDICAID, OTHER ==
[2019-12-07 10:56] LABS: ALBUMIN 4.1 g/dL (3.5-5.0); ALKALINE PHOSPHATASE 92 U/L (38-126); ANION GAP 7 (5-19); ASPARTATE AMINO TRANSFERASE 18 U/L (14-36); BILIRUBIN,TOTAL 0.5 mg/dL (0.2-1.3); BLOOD UREA NITROGEN 15 mg/dL (7-20); CALCIUM 9.4 mg/dL (8.4-10.2); CARBON DIOXIDE 30 mmol/L (22-30); CHLORIDE 104 mmol/L (98-107); CHOLESTEROL 181.34 mg/dL (0-200); GLUCOSE 121 mg/dL (75-110); POTASSIUM 3.8 mmol/L (3.6-5.0); TOTAL PROTEIN 7.8 g/dL (6.3-8.2); TRIGLYCERIDES 127 mg/dL (<150)
[2019-12-07 11:06] LABS: DIRECT LDL 127 mg/dL (<100)
== END ==
LOC: OD 09:25
PROVIDERS: ATTEND Physician Assistant
DX: E78.5 Hyperlipidemia, unspecified (principal); I10 Essential (primary) hypertension; Z79.899 Other long term (current) drug therapy
CPT/HCPCS: 36415; 80048; 80061; 80076

== ENCOUNTER 2020-03-10 19:37 | Emergency (ER) | payer MEDICAID, OTHER ==
--- NOTE | 2020-03-10 20:45 | ER Document Report ---
ED General - General Chief Complaint: Flu Symptoms Stated Complaint: BODY ACHES,FEVER,SHORTNESS OF BREATH Time Seen by Provider: 03/10/20 20:44 Primary Care Provider: BRENDA RABAGO PA-C [PHYSICIAN HEEL CUTTER] - Follow up as needed Mode of Arrival: Ambulatory Information source: Patient - via [employer] combination [employer] Notes: 03/10/20 20:23 - ED [facility] Num: [id number] : 1960 Patient Age: 59 Pt c/o fever, cough, body aches and gums hurting since yesterday afternoon. Pt reports history of asthma, arthritis, HTN, high cholesterol and insulin dependent diabetes. MY NOTES 59-year-old female who speaks only Hungarian and very little Greenlandic. She arrives with chief complaint of sore mouth achy body cough fever but denies any coronavirus. She thinks she may have influenza. She has a history of IDDM hypertension and chest pain. Patient is on metformin Cozaar Lantus HCTZ hydralazine and Cardizem 120 TRAVEL OUTSIDE OF THE [place] IN LAST 30 DAYS: No - HPI Onset: Yesterday Onset/Duration: Worse Quality of pain: Achy Severity: Mild Pain Level: 2 Associated symptoms: Body/muscle aches, Fever, Sore throat, Weakness Exacerbated by: Movement Relieved by: Denies Similar symptoms previously: No Recently seen / treated by doctor: No - Related Data Allergies/Adverse Reactions: clopidogrel [From Plavix] Allergy (Verified 11/11/19 07:56) RASH Home Medications: insulin Past Medical History - General Information source: Patient - Social History Smoking Status: Current Every Day Smoker Cigarette use (# per day): Yes Chew tobacco use (# tins/day): No Smoking Education Provided: Yes Frequency of alcohol use: None Drug Abuse: None Lives with: Family Family History: Reviewed & Not Pertinent Patient has suicidal ideation: No Patient has homicidal ideation: No - Past Medical History Cardiac Medical History: Reports: Hx Hypertension Denies: Hx Coronary Artery Disease, Hx Heart Attack Pulmonary Medical History: Reports: Hx Asthma, Hx COPD Denies: Hx Bronchitis, Hx Pneumonia Neurological Medical History: Denies: Hx Cerebrovascular Accident, Hx Seizures Endocrine Medical History: Reports: Hx Diabetes Mellitus Type 2 Renal/ Medical History: Denies: Hx Peritoneal Dialysis Musculoskeletal Medical History: Reports Hx Arthritis Past Surgical History: Reports: Hx Tubal Ligation - Immunizations Hx Diphtheria, Pertussis, Tetanus Vaccination: No Review of Systems - Review of Systems Constitutional: See HPI, Fever, Malaise, Weakness, Recent illness EENT: See HPI, Throat pain Cardiovascular: No symptoms reported Respiratory: No symptoms reported Gastrointestinal: No symptoms reported Genitourinary: No symptoms reported Female Genitourinary: No symptoms reported Musculoskeletal: No symptoms reported Skin: No symptoms reported Hematologic/Lymphatic: No symptoms reported Neurological/Psychological: No symptoms reported, Weakness, Headaches Physical Exam - Vital signs Vitals: Temp Pulse Resp BP Pulse Ox 99.4 F 120 H 20 162/82 H 98 03/10/20 19:46 03/10/20 19:46 03/10/20 19:46 03/10/20 19:46 03/10/20 19:46 Interpretation: Hypertensive, Tachycardic - General General appearance: Alert, Anxious - HEENT Head: Normocephalic, Atraumatic Eyes: Normal Pupils: PERRL Sinus: Normal Nasal: Normal Mouth/Lips: Normal Mucous membranes: Dry Pharynx: Erythema Neck: Normal - Respiratory Respiratory status: No respiratory distress Chest status: Nontender Breath sounds: Normal Chest palpation: Normal - Cardiovascular Rhythm: Tachycardia Heart sounds: Normal auscultation Murmur: No - Abdominal Inspection: Normal Distension: No distension Bowel sounds: Normal Tenderness: Nontender Organomegaly: No organomegaly - Rectal Hemorrhoids: Other - deferred - Genitourinary Bimanuel exam: Other - deferred - Back Back: Normal - Extremities General upper extremity: Normal inspection, Nontender, Normal color, Normal ROM, Normal temperature General lower extremity: Normal inspection, Nontender, Normal color, Normal ROM, Normal temperature, Normal weight bearing. No: Kayode's sign - Neurological Neuro grossly intact: Yes Cognition: Normal Orientation: AAOx4 Wolcott Coma Scale Eye Opening: Spontaneous Shira Coma Scale Verbal: Oriented Wolcott Coma Scale Motor: Obeys Commands Wolcott Coma Scale Total: 15 Speech: Normal Motor strength normal: LUE, RUE, LLE, RLE Sensory: Normal - Psychological Associated symptoms: Flat affect - Skin Skin Temperature: Warm Skin Moisture: Dry Course - Vital Signs Vital signs: Temp Pulse Resp BP Pulse Ox 98.8 F 120 H 16 138/74 H 99 03/10/20 20:48 03/10/20 19:46 03/10/20 22:04 03/10/20 22:04 03/10/20 22:04 - Laboratory Result Diagrams: 03/10/20 20:45 03/10/20 20:54 Laboratory results interpreted by me: 03/10/20 03/10/20 03/10/20 20:34 20:45 20:45 RDW 14.6 H Glucose POC Glucose 325 H Urine Glucose (UA) >=500 H Urine Urobilinogen 2.0 H 03/10/20 03/10/20 20:54 22:40 RDW Glucose 345 H POC Glucose 318 H Urine Glucose (UA) Urine Urobilinogen Critical Care Note - Critical Care Note Comments: Via custodian supervisor patient was explained that her labs were within normal limits but the test for coronavirus COVID-19 has not returned and would not return for several days. We advised her to follow-up with personal doctor and to stay quarantined if her test comes back positive. Also get her prescriptions filled Discharge - Discharge Clinical Impression: Viral syndrome Condition: Stable Disposition: HOME, SELF-CARE Additional Instructions: Via custodian supervisor you were explained that labs were within normal limits but the test for coronavirus COVID-19 has not returned and would not return for several days. We advised you via [employer] to follow-up with personal doctor and to stay quarantined if your test comes back positive. Also get your prescriptions filled. Return to ER if symptoms persist or worsen. Prescriptions: Chlorzoxazone [Parafon Forte Dsc 500 Mg Tablet] 500 mg PO BID PRN #10 tablet PRN Reason: Pain Scale Of 1 Azithromycin [Zithromax 250 mg Tablet] 250 mg PO ASDIR PRN #6 tablet PRN Reason: Referrals: BRENDA RABAGO PA-C [PHYSICIAN HEEL CUTTER] - Follow up as needed
[2020-03-10 21:04] LABS: ABSOLUTE BASOPHILS # (AUTO) 0.1 10^3/uL (0.0-0.2); ABSOLUTE EOSINOPHILS # (AUTO) 0.1 10^3/uL (0.0-0.6); ABSOLUTE LYMPHOCYTES (AUTO) 3.2 10^3/uL (0.5-4.7); ABSOLUTE MONOCYTES (AUTO) 0.8 10^3/uL (0.1-1.4); ABSOLUTE NEUT (AUTO) 5.8 10^3/uL (1.7-8.2); BASOPHILS % (AUTO) 0.8 % (0-2); HEMATOCRIT 41.9 % (36.0-47.0); HEMOGLOBIN 14.5 g/dL (12.0-15.5); LYMPHOCYTES % (AUTO) 32.2 % (13-45); MEAN CORPUSCULAR HEMOGLOBIN 28.9 pg (27.0-33.4); MEAN CORPUSCULAR HGB CONC 34.6 g/dL (32.0-36.0); MEAN CORPUSCULAR VOLUME 84 fl (80-97); MONOCYTES % (AUTO) 7.6 % (3-13); PLATELET COUNT 288 10^3/uL (150-450); RED BLOOD COUNT 5.02 10^6/uL (3.72-5.28); RED CELL DISTRIBUTION WIDTH 14.6 % (11.5-14.0); SEGMENTED NEUTROPHILS % (AUTO) 58.4 % (42-78); TOTAL CELLS COUNTED % (AUTO) 100 %; WHITE BLOOD COUNT 9.9 10^3/uL (4.0-10.5)
[2020-03-10 21:21] LABS: APPEARANCE,URINE SLIGHTLY-CLOUDY; BILIRUBIN,URINE NEGATIVE (NEGATIVE); COLOR,URINE YELLOW; GLUCOSE, URINE >=500 mg/dL (NEGATIVE); KETONES,URINE NEGATIVE (NEGATIVE); LEUKOCYTE ESTERASE,URINE NEGATIVE (NEGATIVE); NITRITE,URINE NEGATIVE (NEGATIVE); PROTEIN,URINE NEGATIVE (NEGATIVE); URINE SPECIFIC GRAVITY 1.023
[2020-03-10 21:22] LABS: A TYPE INFLUENZA AG NEGATIVE (NEGATIVE); B INFLUENZA AG NEGATIVE (NEGATIVE)
[2020-03-10 21:31] LABS: ALBUMIN 3.9 g/dL (3.5-5.0); ALKALINE PHOSPHATASE 105 U/L (38-126); ANION GAP 9 (5-19); ASPARTATE AMINO TRANSFERASE 15 U/L (14-36); BILIRUBIN,DIRECT 0.3 mg/dL (0.0-0.4); BILIRUBIN,TOTAL 0.6 mg/dL (0.2-1.3); BLOOD UREA NITROGEN 11 mg/dL (7-20); CALCIUM 9.3 mg/dL (8.4-10.2); CARBON DIOXIDE 29 mmol/L (22-30); CHLORIDE 99 mmol/L (98-107); GLUCOSE 345 mg/dL (75-110); POTASSIUM 3.8 mmol/L (3.6-5.0); TOTAL PROTEIN 7.2 g/dL (6.3-8.2)
--- NOTE | 2020-03-10 21:39 | RADIOLOGY REPORT (SQ) ---
EXAM DESCRIPTION: XR CHEST 1 VIEW COMPLETED DATE/TME: 03/10/2020 20:48 CLINICAL HISTORY: 59 years, Female, fever COMPARISON: Prior study from 01/26/2019 NUMBER OF VIEWS: One TECHNIQUE: Single frontal view of the chest was obtained LIMITATIONS: None. FINDINGS: Cardiac and mediastinal contours are stable. Lungs are clear. No pleural effusion or pneumothorax. IMPRESSION: No acute disease. copyright 2010 [employer]- All Rights Reserved
[2020-03-10] MEDS ORDERED: NORMAL SALINE 1000 ML 1,000 ML IV ONE ×2 (22:03→22:57)
[2020-03-10] MEDS ORDERED: KETOROLAC TROMETHAMINE INJ/PF 30 MG/1 ML SDV IV ONE (23:30)
[2020-03-10] MEDS ORDERED: FENTANYL CITRATE INJ/PF 100 MCG/2 ML AMPUL IV ONE (23:31)
[2020-03-10] MEDS ORDERED: ONDANSETRON HCL INJ/PF 4 MG/2 ML SDV IV ONE (23:31)
[2020-03-11 00:59] VITALS: BP 126/87
== END 2020-03-11 00:59 | disposition home or self-care (01) ==
LOC: ER 19:37
DX: B34.9 Viral infection, unspecified (principal); Z20.828 Contact with and (suspected) exposure to other viral communicable diseases; M79.10 Myalgia, unspecified site; R50.9 Fever, unspecified; R06.02 Shortness of breath; F17.210 Nicotine dependence, cigarettes, uncomplicated; I10 Essential (primary) hypertension; E11.9 Type 2 diabetes mellitus without complications
CPT/HCPCS: 99284; 96361; 96374; 96375; 36415; 87040; 87070; 87880; 82962; 85025; 87635; 80053; 81001; 87804; 71045; J3010; J1885; J2405; J7030; C9803

== ENCOUNTER → 2020-04-09 | Outpatient (CLI) | payer MEDICAID ==
[2020-04-09 08:51] LABS: ALKALINE PHOSPHATASE 87 U/L (38-126); ASPARTATE AMINO TRANSFERASE 22 U/L (14-36); BILIRUBIN,DIRECT 0.3 mg/dL (0.0-0.4); BILIRUBIN,TOTAL 0.8 mg/dL (0.2-1.3); CHOLESTEROL 84.81 mg/dL (0-200); TOTAL PROTEIN 7.3 g/dL (6.3-8.2); TRIGLYCERIDES 92 mg/dL (<150)
[2020-04-09 09:07] LABS: DIRECT LDL 36 mg/dL (<100)
== END ==
LOC: OD 07:55
PROVIDERS: ATTEND Physician Assistant
DX: E78.5 Hyperlipidemia, unspecified (principal); Z79.899 Other long term (current) drug therapy
CPT/HCPCS: 36415; 80061; 80076

== ENCOUNTER → 2020-05-22 | Outpatient (CLI) | payer MEDICAID ==
[2020-05-22 10:52] LABS: ANION GAP 9 (5-19); BLOOD UREA NITROGEN 11 mg/dL (7-20); CALCIUM 9.3 mg/dL (8.4-10.2); CARBON DIOXIDE 28 mmol/L (22-30); CHLORIDE 105 mmol/L (98-107); CREATINE KINASE 45 U/L (30-135); GLUCOSE 131 mg/dL (75-110)
== END ==
LOC: OD 09:26
PROVIDERS: ATTEND Internal Medicine Cardiovascular Disease
DX: R25.2 Cramp and spasm (principal)
CPT/HCPCS: 36415; 80048; 82550; 83735